=== PATIENT | female | born 1970 | race Caucasian/White ===

== ENCOUNTER 2019-07-01 19:39 | Emergency (ER) | payer BC, MEDICARE, SELFPAY ==
[2019-07-01 19:59] VITALS: BP 103/68; PULSE 100; RESP 16; TEMP 37.3; O2SAT 99
[2019-07-01 20:11] LABS: Influenza Control Valid (Valid)
--- NOTE | 2019-07-01 20:21 | ED.URI ---
HPI - URI/Sore Throat General Chief Complaint: Upper Respiratory Infection Stated Complaint: fever, cough, tightness in chest Source: patient Mode of arrival: ambulatory Limitations: no limitations History of Present Illness HPI Narrative: 49 y.o. with hx of asthma tx. with prn albuterol developed flu symptoms this AM consisting of a fever as high as 101 degrees, anterior chest tightness made worse with deep inspiration, rhinorrhea, a mild sore throat, fatigue and diffuse myalgia. She feels like the source of her cough is in her lower trachea where it feels irritated. She has upper abd. pain when she coughs. There's been no vomiting or diarrhea. She was recently exposed to her nephew who was dx. with Flu A yesterday. Her father has flu like symptoms. Able to tolerate fluids by mouth: Yes Related Data Home Medications Medication Instructions Recorded Confirmed lorazepam [Ativan] 1 mg PO TID PRN 03/10/19 07/01/19 metoprolol tartrate 12.5 mg PO DAILY 03/10/19 07/01/19 multivit with min-folic acid 0.8 mg PO DAILY 03/10/19 07/01/19 [Adult One Daily Multivitamin] olanzapine [Zyprexa] 1.25 mg PO HS 03/10/19 07/01/19 flecainide 50 mg PO Q12H 07/01/19 07/01/19 Allergies Allergy/AdvReac Type Severity Reaction Status Date / Time Penicillins Allergy Intermediate Verified 03/03/15 10:58 oseltamivir Allergy Unknown Rash Verified 05/26/18 21:03 citalopram AdvReac Severe SUICIDAL Verified 10/15/18 07:59 Contrast Media Allergy Unknown Dyspnea / Uncoded 10/03/18 16:04 SOB Review of Systems Constitutional: Constitutional: Reports no additional constitutional complaints ENT: Reports system reviewed and no additional complaints, except as documented Comments: lightheadedness Cardiovascular: Cardiovascular: Reports no additional cardiovascular complaints Respiratory: Comments: cough is unproductive Gastrointestinal: Gastrointestinal: Reports no additional gastrointestinal complaints Genitourinary: Genitourinary: Denies dysuria Musculoskeletal: Musculoskeletal: Reports no additional musculoskeletal complaints Integumentary/Breasts: Skin/Breast: Denies rash PMFSH Past Medical History Medical History Asthma Cardiac arrhythmia Exogenous obesity Surgical History Surgical History History of cardiac radiofrequency ablation History of Tushar-en-Y gastric bypass Family History Family History Father No problems noted. Mother COPD (chronic obstructive pulmonary disease) Social History Social History Smoking status: Current every day smoker Tobacco type: cigarettes Additional smoking assessment comments: smokes 15 cigarettes per day Substance use: never Exam Narrative: Exam Narrative: Frequent coughing. Looks like she doesn't feel well. Const: General: no acute distress HENMT: Face and sinus: no sinus tenderness Mouth: Yes moist mucous membranes Throat: posterior oropharynx normal Eyes: EOM: EOMs intact bilaterally Neck: Neck: no lymphadenopathy Chest: Chest palpation & inspection: normal inspection of the chest Resp: Auscultation: wheezes (with coughing) Cardio: Rate: regular rate Rhythm: regular rhythm GI: GI Palp: Yes Tenderness to palpation present (GI) (minor epigastric tenderness with no guarding. ) : General: Yes no CVA tenderness Extrem: General: normal to inspection Course Course Emergency Course: In view of exposure to Flu A, high prevalence in the community and typical symptoms, suspect flu test is a false negative. Duoneb resulted in chest opening and less coughing. Vital Signs Vital signs: Vital Signs Temperature 37.3 C 07/01/19 19:59 Pulse Rate 100 07/01/19 19:59 Respiratory Rate 16 07/01/19 19:59 Blood Pressure 103/68 07/01/19 1
[2019-07-01] MEDS: IPRATROPIUM 0.5 MG/ALBUTEROL SULFATE 2.5 MG AMPUL.NEB 3 ML INHALATION (20:33)
[2019-07-01] MEDS: predniSONE 20 MG TABLET 40 MG PO (20:34)
[2019-07-01 20:42] VITALS: PULSE 100; RESP 16
[2019-07-01 21:13] VITALS: PULSE 97; O2SAT 98
== END 2019-07-01 21:15 | disposition home or self-care (01) ==
PROVIDERS: Emergency Provider Family Medicine
DX: R68.89 Other general symptoms and signs (principal); J40 Bronchitis, not specified as acute or chronic
CPT/HCPCS: 87804; 94640; 99283; J7512

== ENCOUNTER 2019-07-06 19:44 | Emergency (ER) | payer BC, MEDICARE, SELFPAY ==
[2019-07-06 20:09] VITALS: BP 131/81; PULSE 99; RESP 16; TEMP 36.3; O2SAT 100
--- NOTE | 2019-07-06 20:27 | ECG_ITS ---
Measurements Intervals [place] Rate: 61 P: 33 AR: 149 QRS: 38 QRSD: 116 T: 38 QT: 426 QTc: 432 Interpretive Statements SINUS RHYTHM LOW QRS VOLTAGE IN LIMB LEADS INCOMPLETE RIGHT BUNDLE BRANCH BLOCK BASELINE ARTIFACT- I, III, AVL BORDERLINE ECG Electronically Signed On 07-07-2019 7:15:33 CDT by Roby Nina D.O.
[2019-07-06 20:41] VITALS: BP 105/53; BP 107/66; PULSE 76; PULSE 90
[2019-07-06] MEDS: PANTOPRAZOLE 40 MG TABLET PO (20:41)
[2019-07-06] MEDS: MECLIZINE HCL 25 MG TABLET PO (20:41)
[2019-07-06 20:42] LABS: Hematocrit 39.9 % (35.0-49.0); Mean Corpuscular HGB Conc 35.1 g/dL (32.0-36.0); Mean Corpuscular Hemoglobin 32.9 pg (27.0-31.0); Mean Corpuscular Volume 93.7 fL (78.0-102.0); Mean Platelet Volume 11.6 fl (9.2-11.8); Platelet Count Result 84 K/mm3 (150-420); Red Blood Count 4.26 M/mm3 (4.20-5.40); Red Cell Distribution Width 12.2 % (11.6-14.4); White Blood Count 4.3 K/mm3 (4.8-10.8)
[2019-07-06 20:57] LABS: Alanine Aminotransferase 26 U/L (14-59); Alkaline Phosphatase 68 U/L (46-116); Anion Gap 11.8 mmol/L (7-16); Aspartate Amino Transferase 20 U/L (15-37); Bilirubin,Total 0.2 mg/dL (0.00-1.00); Blood Urea Nitrogen 15 mg/dL (7-18); Calcium 8.2 mg/dL (8.5-10.1); Carbon Dioxide 29 mmol/L (21-32); Chloride 107 mmol/L (98-108); Estimated Glomerular Filt Rate > 60; Glucose 81 mg/dL (70-99); Osmolality Calculated 297 mOsm/kg (285-295); Potassium 3.8 mmol/L (3.5-5.1); Sodium 144 mmol/L (136-145); Total Protein 6.6 g/dL (6.4-8.2)
--- NOTE | 2019-07-06 21:06 | ED.GENADULT ---
HPI - General Adult General Chief complaint: Abdominal Pain Stated complaint: dizziness, sweating, upper abdominal pain Source: patient Mode of arrival: ambulatory Limitations: no limitations History of Present Illness HPI narrative: A 49-year-old female that presents with some dizziness has some frontal sinus pressure and tenderness with bilateral ear pressure, also has history of gastric bypass surgery and does have an epigastric discomfort is currently taking proton pump inhibitor but not daily, there is no nausea or vomiting no fever chills no shortness of breath no palpitations or arrhythmias no diarrhea constipation. Onset (ago): day(s) Location: head Radiation: abdomen Pain Consistency: intermittent Relieving factors: eating Associated symptoms: denies other symptoms Related Data Home Medications Medication Instructions Recorded Confirmed lorazepam [Ativan] 1 mg PO TID PRN 03/10/19 07/06/19 metoprolol tartrate 12.5 mg PO DAILY 03/10/19 07/06/19 multivit with min-folic acid 0.8 mg PO DAILY 03/10/19 07/06/19 [Adult One Daily Multivitamin] olanzapine [Zyprexa] 1.25 mg PO HS 03/10/19 07/06/19 flecainide 50 mg PO Q12H 07/01/19 07/06/19 Allergies Allergy/AdvReac Type Severity Reaction Status Date / Time Penicillins Allergy Intermediate Verified 03/03/15 10:58 oseltamivir Allergy Unknown Rash Verified 05/26/18 21:03 citalopram AdvReac Severe SUICIDAL Verified 10/15/18 07:59 Contrast Media Allergy Unknown Dyspnea / Uncoded 10/03/18 16:04 SOB Review of Systems Review of Systems: All systems reviewed & are unremarkable except as noted in HPI and below PMFSH Past Medical History Medical History Asthma Cardiac arrhythmia Exogenous obesity Surgical History Surgical History History of cardiac radiofrequency ablation History of Tushar-en-Y gastric bypass Family History Family History Father No problems noted. Mother COPD (chronic obstructive pulmonary disease) Social History Social History Smoking status: Current every day smoker Tobacco type: cigarettes Additional smoking assessment comments: smokes 15 cigarettes per day Substance use: never Exam Const: General: no acute distress Orientation/consciousness: patient oriented x3 HENMT: Head: normal to inspection Eyes: Conjunctivae: conjunctivae normal Pupils: Equal, round and reactive pupils present Neck: Neck: normal visual inspection and no lymphadenopathy Chest: Chest palpation & inspection: normal inspection of the chest Resp: Effort & Inspection: normal respiratory effort Auscultation: clear to auscultation bilaterally GI: GI Palp: Yes Soft to palpation and Yes Tenderness to palpation present (GI) ( Epigastric tenderness with palpation) : General: Yes no CVA tenderness Back/Spine/Pelvis: Back: no CVA tenderness Neuro: General: patient oriented x3 and moves all extremities Extrem: General: normal to inspection Course Vital Signs Vital signs: Vital Signs Temperature 36.3 C L 07/06/19 20:09 Pulse Rate 99 07/06/19 20:09 Respiratory Rate 16 07/06/19 20:09 Blood Pressure 131/81 07/06/19 20:09 Pulse Oximetry 100 07/06/19 20:09 Temperature 36.3 C L 07/06/19 20:09 Pulse Rate 90 07/06/19 20:41 Respiratory Rate 16 07/06/19 20:09 Blood Pressure 107/66 07/06/19 20:41 Pulse Oximetry 100 07/06/19 20:09 Medical Decision Making Vital Signs Vital Signs: Vital Signs Temperature 36.3 C L 07/06/19 20:09 Pulse Rate 99 07/06/19 20:09 Respiratory Rate 16 07/06/19 20:09 Blood Pressure 131/81 07/06/19 20:09 Pulse Oximetry 100 07/06/19 20:09 Temperature 36.3 C L 07/06/19 20:09 Pulse Rate 90 07/06/19 20:41 Respiratory Rate 16 07/06/19 20:09
[2019-07-06 21:28] VITALS: BP 104/57; PULSE 65; O2SAT 95
== END 2019-07-06 21:29 | disposition home or self-care (01) ==
PROVIDERS: Emergency Provider Emergency Medicine
DX: J01.10 Acute frontal sinusitis, unspecified (principal); K21.9 Gastro-esophageal reflux disease without esophagitis
CPT/HCPCS: 36415; 80053; 85027; 93005; 99283; A9270

== ENCOUNTER 2019-07-10 11:23 | Emergency (ER) | payer BC, MEDICARE, SELFPAY ==
--- NOTE | 2019-07-10 11:28 | ECG_ITS ---
Measurements Intervals [place] Rate: 63 P: 67 [place]: 163 QRS: 83 QRSD: 117 T: 72 QT: 431 QTc: 442 Interpretive Statements SINUS RHYTHM INTRAVENTRICULAR CONDUCTION DELAY CANNOT RULE OUT SEPTAL INFARCT, AGE INDETERMINATE ABNORMAL ECG Electronically Signed On 07-10-2019 11:49:02 CDT by Roby Nina D.O.
[2019-07-10 11:43] VITALS: BP 108/73; PULSE 68; RESP 22; TEMP 36.5; O2SAT 97
[2019-07-10 11:51] LABS: Glucose Point of Care 114 (65-105)
[2019-07-10] MEDS: LORAZEPAM 1 MG TABLET PO (12:10)
[2019-07-10 12:14] LABS: Basophils Absolute Auto 0.04 K/mm3 (0.00-0.10); Basophils Percent Auto 0.6 % (0.0-1.0); Eosinophils Percent Auto 1.5 % (1.0-6.0); Hematocrit 43.3 % (35.0-49.0); Hemoglobin 15.1 g/dL (12.0-15.0); Immature Granulocyte Absolute 0.02 K/mm3 (0.00-0.00); Immature Granulocyte Percent A 0.3 % (0.0-0.0); Lymphocytes Absolute Auto 1.77 K/mm3 (1.10-4.50); Lymphocytes Percent Auto 26.3 % (18.0-42.0); Mean Corpuscular HGB Conc 34.9 g/dL (32.0-36.0); Mean Corpuscular Hemoglobin 32.7 pg (27.0-31.0); Mean Corpuscular Volume 93.7 fL (78.0-102.0); Mean Platelet Volume 11.2 fl (9.2-11.8); Monocytes Percent Auto 4.5 % (2.0-11.0); Neutrophils Absolute Auto 4.5 K/mm3 (1.7-7.2); Neutrophils Percent Auto 66.8 % (50.0-70.0); Platelet Count Result 136 K/mm3 (150-420); Red Blood Count 4.62 M/mm3 (4.20-5.40); Red Cell Distribution Width 12.3 % (11.6-14.4); White Blood Count 6.7 K/mm3 (4.8-10.8)
[2019-07-10 12:19] LABS: Influenza Control Valid (Valid)
[2019-07-10 12:26] LABS: Alanine Aminotransferase 24 U/L (14-59); Albumin Level 3.3 g/dL (3.4-5.0); Alkaline Phosphatase 70 U/L (46-116); Anion Gap 8.7 mmol/L (7-16); Aspartate Amino Transferase 18 U/L (15-37); Bilirubin,Total 0.3 mg/dL (0.00-1.00); Blood Urea Nitrogen 6 mg/dL (7-18); Calcium 8.8 mg/dL (8.5-10.1); Carbon Dioxide 30 mmol/L (21-32); Chloride 109 mmol/L (98-108); Estimated Glomerular Filt Rate > 60; Glucose 78 mg/dL (70-99); Osmolality Calculated 294 mOsm/kg (285-295); Potassium 3.7 mmol/L (3.5-5.1); Sodium 144 mmol/L (136-145); Total Protein 6.6 g/dL (6.4-8.2)
--- NOTE | 2019-07-10 12:33 | ED.GENADULT ---
HPI - General Adult General Chief complaint: Arrhythmia/Palpitations Stated complaint: Heart racing,sweats Source: patient Mode of arrival: ambulatory Limitations: no limitations History of Present Illness HPI narrative: Is a 49-year-old patient presents with some the sensation of palpitations with clammy and sweaty lb with no chest pain no fever chills no abdominal pain no shortness of breath no nausea vomiting no dysuria. Patient was recently had her Zyprexa adjusted and since then has been having increased anxiety with a sensation of palpitations and sweaty palms. Patient was also started on clindamycin for sinusitis since she is allergic to numerous antibiotics. The patient currently has no dizziness no sinus congestion or pressure. Onset (ago): hour(s) Radiation: non-radiation Related Data Home Medications Medication Instructions Recorded Confirmed lorazepam [Ativan] 1 mg PO TID PRN 03/10/19 07/10/19 metoprolol tartrate 12.5 mg PO DAILY 03/10/19 07/10/19 multivit with min-folic acid 0.8 mg PO DAILY 03/10/19 07/10/19 [Adult One Daily Multivitamin] olanzapine [Zyprexa] 1.25 mg PO HS 03/10/19 07/10/19 flecainide 50 mg PO Q12H 07/01/19 07/10/19 Allergies Allergy/AdvReac Type Severity Reaction Status Date / Time Penicillins Allergy Intermediate Verified 03/03/15 10:58 oseltamivir Allergy Unknown Rash Verified 05/26/18 21:03 citalopram AdvReac Severe SUICIDAL Verified 10/15/18 07:59 Contrast Media Allergy Unknown Dyspnea / Uncoded 10/03/18 16:04 SOB Review of Systems Review of Systems: All systems reviewed & are unremarkable except as noted in HPI and below [facility] Social History Social History Smoking status: Current every day smoker Tobacco type: cigarettes Additional smoking assessment comments: smokes 15 cigarettes per day Substance use: never Exam Const: General: no acute distress and alert Orientation/consciousness: patient oriented x3 HENMT: Head: normal to inspection Eyes: Conjunctivae: conjunctivae normal Pupils: Equal, round and reactive pupils present Neck: Neck: normal visual inspection Chest: Chest palpation & inspection: normal inspection of the chest Resp: Effort & Inspection: normal respiratory effort Auscultation: clear to auscultation bilaterally Cardio: Rate: regular rate Rhythm: regular rhythm GI: GI Palp: Yes Soft to palpation : General: Yes no CVA tenderness Urinary Catheter: Urinary Catheter: patent and draining Back/Spine/Pelvis: Back: no CVA tenderness Skin: General skin exam: normal color Rashes: no rashes Neuro: General: patient oriented x3, moves all extremities, no meningeal signs and no focal motor deficits Extrem: General: normal to inspection Psych: Affect: Anxious affect present Course Vital Signs Vital signs: Vital Signs Temperature 36.5 C 07/10/19 11:43 Pulse Rate 68 07/10/19 11:43 Respiratory Rate 22 H 07/10/19 11:43 Blood Pressure 108/73 07/10/19 11:43 Pulse Oximetry 97 07/10/19 11:43 Temperature 36.5 C 07/10/19 11:43 Pulse Rate 68 07/10/19 11:43 Respiratory Rate 22 H 07/10/19 11:43 Blood Pressure 108/73 07/10/19 11:43 Pulse Oximetry 97 07/10/19 11:43 Medical Decision Making Vital Signs Vital Signs: Vital Signs Temperature 36.5 C 07/10/19 11:43 Pulse Rate 68 07/10/19 11:43 Respiratory Rate 22 H 07/10/19 11:43 Blood Pressure 108/73 07/10/19 11:43 Pulse Oximetry 97 07/10/19 11:43 Temperature 36.5 C 07/10/19 11:43 Pulse Rate 68 07/10/19 11:43 Respiratory Rate 22 H 07/10/19 11:43 Blood Pressure 108/73 07/10/19 11:43 Pulse Oximetry 97 07/10/19 11:43 Lab Data Result diagrams: 07/10/19 11:58 07/10/19 11:58 Labs: Lab Results 07/10/19 07/10/19 07/10/19 Range/Units 11:49 11:58 11:58 WBC 6.7 (4.8-10.8) K/mm3 RBC 4.62 (4.20-5.40) M/mm3 Hgb 15.1 H
[2019-07-10 12:45] VITALS: BP 106/61; PULSE 70; O2SAT 96
== END 2019-07-10 12:46 | disposition home or self-care (01) ==
PROVIDERS: Emergency Provider Emergency Medicine
DX: F41.9 Anxiety disorder, unspecified (principal)
CPT/HCPCS: 36415; 80053; 85025; 87804; 93005; 99283; A9270

== ENCOUNTER 2019-07-19 21:03 | Emergency (ER) | payer BC, MEDICARE, SELFPAY ==
[2019-07-19 21:11] VITALS: BP 128/67; PULSE 72; RESP 20; TEMP 36.3; O2SAT 98
--- NOTE | 2019-07-19 21:37 | ECG_ITS ---
Measurements Intervals [place] Rate: 72 P: 38 [place]: 144 QRS: 52 QRSD: 107 T: 43 QT: 404 QTc: 444 Interpretive Statements SINUS RHYTHM INCOMPLETE RIGHT BUNDLE BRANCH BLOCK LOW QRS VOLTAGE IN LIMB LEADS BORDERLINE ECG Electronically Signed On 07-20-2019 8:07:03 CDT by Roby Nina D.O.
--- NOTE | 2019-07-19 21:39 | ED.ABDPAIN ---
HPI - Abdominal Pain General Chief Complaint: Abdominal Pain Stated Complaint: abdominal pain History of Present Illness HPI narrative: Avani is a 49F with a complex PMH most significant for gastric bypass, cholecystitis s/p cholecystectomy but with gallstones after the surgery that presented to the ED with RUQ pain. She woke up with the dull RUQ pain that radiates to the back. It has become progressively worse throughout the day. It is associated with anorexia but no nausea, vomiting, diarrhea, constipation, chest pain, dysuria, urinary frequency, lightheadedness, or syncope/near-syncope. She had a BM today. Related Data Home Medications Medication Instructions Recorded Confirmed lorazepam [Ativan] 1 mg PO TID PRN 03/10/19 07/19/19 metoprolol tartrate 12.5 mg PO DAILY 03/10/19 07/19/19 multivit with min-folic acid 0.8 mg PO DAILY 03/10/19 07/19/19 [Adult One Daily Multivitamin] olanzapine [Zyprexa] 1.25 mg PO HS 03/10/19 07/19/19 flecainide 50 mg PO Q12H 07/01/19 07/19/19 Allergies Allergy/AdvReac Type Severity Reaction Status Date / Time Penicillins Allergy Intermediate Verified 03/03/15 10:58 oseltamivir Allergy Unknown Rash Verified 05/26/18 21:03 citalopram AdvReac Severe SUICIDAL Verified 10/15/18 07:59 Contrast Media Allergy Unknown Dyspnea / Uncoded 10/03/18 16:04 SOB Review of Systems Constitutional: Constitutional: Reports as per HPI Eyes: Eyes: Reports as per HPI ENT: Reports system reviewed and no additional complaints, except as documented Cardiovascular: Cardiovascular: Reports as per HPI Respiratory: Respiratory: Reports as per HPI Gastrointestinal: Gastrointestinal: Reports as per HPI Genitourinary: Genitourinary: Reports no additional female genitourinary complaints Musculoskeletal: Musculoskeletal: Reports no additional musculoskeletal complaints Integumentary/Breasts: Skin/Breast: Reports system reviewed and no additional complaints, except as docu Neurologic: Reports system reviewed and no additional complaints, except as documented Psychiatric: Psychiatric: Reports no additional psychiatric complaints Endocrine: Endocrine: Reports no additional endocrine complaints Hematologic/Lymphatic: Hematologic/Lymphatic: Reports no additional hematologic/lymphatic complaints Allergic/Immunologic: Allergic/Immunologic: Reports no additional allergic/immunologic complaints PMFSH Past Medical History Medical History Asthma Cardiac arrhythmia Exogenous obesity Surgical History Surgical History History of cardiac radiofrequency ablation History of Tushar-en-Y gastric bypass Family History Family History Father No problems noted. Mother COPD (chronic obstructive pulmonary disease) Social History Social History Smoking status: Current every day smoker Tobacco type: cigarettes Additional smoking assessment comments: smokes 15 cigarettes per day Substance use: never Gender identity (if verbalized by the patient): Female Exam Const: General: no acute distress HENMT: Other: normocephalic, atraumatic Eyes: Conjunctivae: conjunctivae normal Pupils: Equal, round and reactive pupils present Neck: Neck: normal visual inspection Chest: Chest palpation & inspection: normal inspection of the chest Resp: Effort & Inspection: normal respiratory effort Auscultation: clear to auscultation bilaterally Other: no coughing Cardio: Rate: regular rate Rhythm: regular rhythm Heart sounds: no murmurs GI: GI Palp: Yes Soft to palpation, No Tenderness to palpation present (GI) and No Guarding due to palpation present (GI) : General: Yes no CVA tenderness and Yes other (No suprapubic tenderness) Back/Spine/Pelvis: Back: no CVA tenderness Skin: Gen
[2019-07-19 21:49] LABS: Basophils Absolute Auto 0.04 K/mm3 (0.00-0.10); Basophils Percent Auto 0.7 % (0.0-1.0); Eosinophils Absolute Auto 0.14 K/mm3 (0.02-0.50); Eosinophils Percent Auto 2.4 % (1.0-6.0); Hematocrit 38.8 % (35.0-49.0); Hemoglobin 13.7 g/dL (12.0-15.0); Immature Granulocyte Absolute 0.01 K/mm3 (0.00-0.00); Immature Granulocyte Percent A 0.2 % (0.0-0.0); Lymphocytes Absolute Auto 2.87 K/mm3 (1.10-4.50); Lymphocytes Percent Auto 48.8 % (18.0-42.0); Mean Corpuscular HGB Conc 35.3 g/dL (32.0-36.0); Mean Corpuscular Hemoglobin 33.1 pg (27.0-31.0); Mean Corpuscular Volume 93.7 fL (78.0-102.0); Mean Platelet Volume 12.2 fl (9.2-11.8); Monocytes Absolute Auto 0.29 K/mm3 (0.10-0.90); Monocytes Percent Auto 4.9 % (2.0-11.0); Neutrophils Absolute Auto 2.5 K/mm3 (1.7-7.2); Platelet Count Result 111 K/mm3 (150-420); Red Blood Count 4.14 M/mm3 (4.20-5.40); Red Cell Distribution Width 12.5 % (11.6-14.4); White Blood Count 5.9 K/mm3 (4.8-10.8)
[2019-07-19 22:02] LABS: INR 1.1; Prothrombin Time 11.4 Seconds (9.64-11.0)
[2019-07-19 22:06] LABS: BNP 29.2 pg/mL (0-100)
[2019-07-19 22:07] LABS: Alanine Aminotransferase 27 U/L (14-59); Albumin Level 3.1 g/dL (3.4-5.0); Alkaline Phosphatase 73 U/L (46-116); Anion Gap 10.8 mmol/L (7-16); Aspartate Amino Transferase 19 U/L (15-37); Bilirubin,Total 0.4 mg/dL (0.00-1.00); Blood Urea Nitrogen 10 mg/dL (7-18); Calcium 8.3 mg/dL (8.5-10.1); Carbon Dioxide 28 mmol/L (21-32); Chloride 108 mmol/L (98-108); Estimated CRCL calculation 83 ml/min; Estimated Glomerular Filt Rate > 60; Glucose 97 mg/dL (70-99); Lipase 76 U/L (73-393); Osmolality Calculated 295 mOsm/kg (285-295); Potassium 3.8 mmol/L (3.5-5.1); Sodium 143 mmol/L (136-145); Total Protein 5.9 g/dL (6.4-8.2); Troponin I < 0.02 ng/mL (0.00-0.056)
[2019-07-19 22:21] VITALS: BP 109/58; PULSE 67; RESP 20; O2SAT 95
== END 2019-07-19 22:33 | disposition home or self-care (01) ==
PROVIDERS: Emergency Provider Family Medicine
DX: R07.81 Pleurodynia (principal); K29.70 Gastritis, unspecified, without bleeding; F17.200 Nicotine dependence, unspecified, uncomplicated
CPT/HCPCS: 36415; 80053; 83690; 83880; 84484; 85025; 85610; 93005; 99283; 99284

== ENCOUNTER 2019-09-24 09:47 | Outpatient (CLI) | payer BC, MEDICARE, SELFPAY ==
--- NOTE | 2019-09-24 10:10 | ECG_ITS ---
Measurements Intervals [place] Rate: 51 P: 48 [place]: 163 QRS: 63 QRSD: 105 T: 61 QT: 412 QTc: 382 Interpretive Statements SINUS BRADYCARDIA WITH SINUS ARRHYTHMIA INCOMPLETE RIGHT BUNDLE BRANCH BLOCK LOW QRS VOLTAGE IN PRECORDIAL LEADS CANNOT RULE OUT SEPTAL INFARCT, AGE INDETERMINATE ABNORMAL ECG Electronically Signed On 09-24-2019 10:17:15 CDT by Roby Nina D.O.
[2019-09-24 11:30] LABS: Alanine Aminotransferase 59 U/L (14-59); Albumin Level 3.4 g/dL (3.4-5.0); Alkaline Phosphatase 89 U/L (46-116); Aspartate Amino Transferase 41 U/L (15-37); Bilirubin,Total 0.4 mg/dL (0.00-1.00); Blood Urea Nitrogen 11 mg/dL (7-18); Calcium 8.8 mg/dL (8.5-10.1); Carbon Dioxide 30 mmol/L (21-32); Chloride 106 mmol/L (98-108); Estimated Glomerular Filt Rate > 60; Ferritin 60 ng/mL (8-252); Folic Acid 18.1 ng/mL (8.6->20); Glucose 65 mg/dL (70-99); Iron 96 ug/dL (50-170); Osmolality Calculated 295 mOsm/kg (285-295); Percent Iron Saturation 35 % (12-57); Sodium 144 mmol/L (136-145); Total Protein 6.5 g/dL (6.4-8.2); Vitamin B12 855 pg/mL (193-986)
[2019-09-27 06:03] LABS: Zinc 86 mcg/dL (60-130)
[2019-09-27 10:27] LABS: Vitamin D 25 Hydroxy 35 ng/mL (30-100)
== END 2019-09-24 09:48 | disposition home or self-care (01) ==
DX: Z79.899 Other long term (current) drug therapy (principal); K90.9 Intestinal malabsorption, unspecified
CPT/HCPCS: 36415; 80053; 82306; 82525; 82607; 82728; 82746; 83540; 83550; 84425; 84630; 93005

== ENCOUNTER 2019-10-21 13:07 | Emergency (ER) | payer BC, MEDICARE, SELFPAY ==
--- NOTE | ~2019-10-21 | XR_ITS ---
XR chest 2V DATE: 10/21/2019 13:40 INDICATION: Syncope, shortness of breath TECHNIQUE: 2 views COMPARISON: 05/06/2019 view chest FINDINGS: There is levoscoliosis of the upper thoracic spine and dextro scoliosis of the lower thorac ic spine. Normal heart size. No hilar or mediastinal enlargement. No pulmonary infiltrate or consolidation, pleural effusion or pulmonary vascular congestion or pneumo thorax. IMPRESSION: No active cardiopulmonary disease Scoliosis Reviewed, dictated and finalized at location A.
--- NOTE | ~2019-10-21 | CT_ITS ---
EXAMINATION: CT brain wo con DATE: 10/21/2019 13:40 INDICATION: Syncope. Memory loss. Dizziness. TECHNIQUE: Computed tomography (CT) of the head was performed without intravenous contrast. Sagittal and coronal reconstructions were performed. The mA was adjusted according to patient size. Iterative reconstruction technique was employed. The dose-length product was 605.33 mGy-cm. COMPARISON: head CT dated 02/22/2019 FINDINGS: No acute intracranial hemorrhage, acute infarction or abnormal extra axial fluid collection. Ventricl es are normal and symmetric. No mass/mass effect. The orbits, paranasal sinuses and mastoid air cells are normal. IMPRESSION: 1. Normal head CT. Reviewed, dictated and finalized at location A. IMPRESSION: 1. Normal head CT.
--- NOTE | 2019-10-21 13:14 | ECG_ITS ---
Measurements Intervals [place] Rate: 54 P: 67 [place]: 156 QRS: 79 QRSD: 112 T: 71 QT: 429 QTc: 407 Interpretive Statements SINUS BRADYCARDIA INTRAVENTRICULAR CONDUCTION DELAY BORDERLINE ECG Electronically Signed On 10-21-2019 15:03:52 CDT by Roby Nina D.O.
[2019-10-21 13:20] VITALS: BP 107/67; PULSE 54; RESP 18; TEMP 36.5; O2SAT 98
[2019-10-21 13:27] LABS: Add Urine Microscopic? YES; Appearance Urine Sl Cloudy (Clear); Bilirubin Urine Negative (Negative); Blood Urine Negative (Negative); Color Urine Yellow (Yellow); Glucose Urine UA Negative (Negative); Ketones Urine Trace (Negative); Leukocyte Esterase Ur Negative LEU/UL (Negative); Nitrate Urine Negative (Negative); Protein Urine Negative (Negative); Specific Grav Ur 1.025 (1.010-1.020); Urobilinogen Urine 0.2 mg/dL (0.2-1.0); pH Urine 5.5 (5.0-8.0)
--- NOTE | 2019-10-21 13:29 | ED.SYNCOPE ---
HPI - Syncope General Chief Complaint: Syncope Stated Complaint: ambulance Time Seen by Provider: 10/21/19 13:10 Source: patient Mode of arrival: EMS Limitations: no limitations History of Present Illness HPI narrative: 49-year-old woman brought to the emergency department by EMS after a syncopal episode today. She was sitting outdoors eating lunch at a restaurant when she states she felt weak, short of breath and paralyzed. She states that she checked her pulse and it felt weak . Witnesses deny any seizure-like activity. On arrival, EMS found her to be somewhat somnolent but responsive. She had a normal Vitals and blood sugar at the scene. She denies any recent illness, head injuries, chest pain, nausea, vomiting, fever, diarrhea, headaches or dizziness. MD complaint: loss of consciousness -: minutes(s) Prodromal symptoms: shortness of breath Witnessed: Yes - by Bystander Context: at rest Injuries sustained associated with event: none Current symptoms: back to baseline Treatments prior to arrival: IV fluids Related Data Home Medications Medication Instructions Recorded Confirmed lorazepam [Ativan] 1 mg PO TID PRN 03/10/19 10/21/19 metoprolol tartrate 12.5 mg PO DAILY 03/10/19 10/21/19 multivit with min-folic acid 0.8 mg PO DAILY 03/10/19 10/21/19 [Adult One Daily Multivitamin] olanzapine [Zyprexa] 1.25 mg PO HS 03/10/19 10/21/19 flecainide 50 mg PO Q12H 07/01/19 10/21/19 Allergies Allergy/AdvReac Type Severity Reaction Status Date / Time Penicillins Allergy Intermediate Hives Verified 10/21/19 15:34 oseltamivir Allergy Unknown Rash Verified 05/26/18 21:03 iohexol Allergy Hives Verified 10/21/19 15:35 [From contrast - CT, X-RAY] citalopram AdvReac Severe SUICIDAL Verified 10/15/18 07:59 Review of Systems Constitutional: Constitutional: Denies chills, Denies fever(s) and Denies weakness Eyes: Eyes: Denies change in vision and Denies photophobia ENT: Denies dysphagia, Denies nasal congestion and Denies sore throat Cardiovascular: Cardiovascular: Denies chest pain and Denies radiating jaw, neck or arm pain Respiratory: Respiratory: Denies cough, Reports dyspnea and Denies wheezing Gastrointestinal: Gastrointestinal: Denies abdominal pain, Denies diarrhea, Reports nausea and Denies vomiting Genitourinary: Genitourinary: Denies hematuria, Denies nocturia and Denies dysuria Musculoskeletal: Musculoskeletal: Denies back pain, Denies arthralgias and Denies joint swelling Integumentary/Breasts: Skin/Breast: Denies pruritus, Denies erythema and Denies rash Neurologic: Denies vertigo, Denies dizziness and Denies syncope Endocrine: Endocrine: Denies polydipsia and Denies polyuria Hematologic/Lymphatic: Hematologic/Lymphatic: Denies easy bleeding and Denies easy bruising Allergic/Immunologic: Allergic/Immunologic: Denies lip swelling and Denies wheezing PMFSH Past Medical History Medical History Asthma Cardiac arrhythmia Exogenous obesity Surgical History Surgical History History of cardiac radiofrequency ablation History of Tushar-en-Y gastric bypass Social History Social History Smoking status: Current every day smoker Tobacco type: cigarettes Additional smoking assessment comments: smokes 15 cigarettes per day Substance use: never Gender identity (if verbalized by the patient): Female Exam Const: General: healthy appearing, no acute distress and alert Orientation/consciousness: patient oriented x3 Limitations: no limitations HENMT: Head: normal to inspection Ears: external ears normal, TM's normal bilaterally and EAC's normal General nose exam: Normal nares present Mouth: Yes moist mucous membranes Eyes: Conjunctivae: conjunctivae normal Pupils: Equal, round and reactive pupils present EOM: EOMs intact b
[2019-10-21 13:31] LABS: Basophils Absolute Auto 0.06 K/mm3 (0.00-0.10); Basophils Percent Auto 1.1 % (0.0-1.0); Eosinophils Absolute Auto 0.18 K/mm3 (0.02-0.50); Eosinophils Percent Auto 3.4 % (1.0-6.0); Hematocrit 39.7 % (35.0-49.0); Hemoglobin 13.7 g/dL (12.0-15.0); Immature Granulocyte Absolute 0.01 K/mm3 (0.00-0.00); Immature Granulocyte Percent A 0.2 % (0.0-0.0); Lymphocytes Absolute Auto 2.23 K/mm3 (1.10-4.50); Lymphocytes Percent Auto 41.7 % (18.0-42.0); Mean Corpuscular HGB Conc 34.5 g/dL (32.0-36.0); Mean Corpuscular Hemoglobin 33.3 pg (27.0-31.0); Mean Corpuscular Volume 96.6 fL (78.0-102.0); Mean Platelet Volume 12.1 fl (9.2-11.8); Monocytes Absolute Auto 0.33 K/mm3 (0.10-0.90); Monocytes Percent Auto 6.2 % (2.0-11.0); Neutrophils Absolute Auto 2.5 K/mm3 (1.7-7.2); Neutrophils Percent Auto 47.4 % (50.0-70.0); Platelet Count Result 102 K/mm3 (150-420); Red Blood Count 4.11 M/mm3 (4.20-5.40); Red Cell Distribution Width 12.8 % (11.6-14.4); White Blood Count 5.4 K/mm3 (4.8-10.8)
[2019-10-21 13:32] LABS: Bacteria Urine 2+ /hpf; Mucus Urine Moderate /lpf; RBC Urine 0-2 /hpf (0-2); Squamous Epithelial Cell Urine Moderate /hpf (Few); WBC Urine 0-3 /hpf (0-3)
[2019-10-21 13:48] LABS: INR 1.1; Lactic Acid Reflex 0.9 mmol/L (0.4-2.0); Partial Thromboplastin Time 23.3 SEC (22.3-31.6)
[2019-10-21 13:49] LABS: Alanine Aminotransferase 48 U/L (14-59); Albumin Level 2.9 g/dL (3.4-5.0); Alkaline Phosphatase 75 U/L (46-116); Aspartate Amino Transferase 43 U/L (15-37); Bilirubin,Total 0.3 mg/dL (0.00-1.00); Blood Urea Nitrogen 11 mg/dL (7-18); Calcium 8.1 mg/dL (8.5-10.1); Carbon Dioxide 26 mmol/L (21-32); Chloride 107 mmol/L (98-108); Estimated Glomerular Filt Rate > 60; Glucose 110 mg/dL (70-99); Magnesium 1.7 mg/dL (1.8-2.4); Osmolality Calculated 292 mOsm/kg (285-295); Sodium 141 mmol/L (136-145); Total Protein 5.9 g/dL (6.4-8.2)
[2019-10-21 13:50] VITALS: BP 102/55; PULSE 51
[2019-10-21 13:51] VITALS: BP 117/65; PULSE 84
[2019-10-21 13:51] LABS: Troponin I < 0.02 ng/mL (0.00-0.056)
--- NOTE | 2019-10-21 14:26 | PC.NURSE ---
PT NEURO REMAINS INTACT, SITTING UP TALKING ON THE PHONE TO FAMILY MEMBERS
--- NOTE | 2019-10-21 14:39 | PC.NURSE ---
ERP CALLS DR ADAIR FOR CONSULT - HADDAD
[2019-10-21] MEDS: ALBUTEROL SULFATE NEB 2.5 MG/3 ML INH INHALATION (15:34)
[2019-10-21 15:37] VITALS: PULSE 50; RESP 12
[2019-10-21 15:42] VITALS: PULSE 73; RESP 12
[2019-10-21 15:54] VITALS: BP 108/58; PULSE 68; O2SAT 97
== END 2019-10-21 16:05 | disposition home or self-care (01) ==
PROVIDERS: Emergency Provider Emergency Medicine
DX: R00.1 Bradycardia, unspecified (principal); R55 Syncope and collapse
CPT/HCPCS: 36415; 70450; 71046; 80053; 81001; 83605; 83735; 84484; 85025; 85380; 85610; 85730; 93005; 94640; 99284

== ENCOUNTER 2019-12-28 10:25 | Emergency (ER) | payer MEDICARE, SELFPAY ==
[2019-12-28 11:00] VITALS: BP 112/83; PULSE 104; RESP 20; TEMP 36.8; O2SAT 97
--- NOTE | 2019-12-28 11:08 | ED.DENTAL ---
HPI - Dental/Oral General Chief complaint: Dental/Oral Stated complaint: tooth pain Source: patient History of Present Illness HPI Narrative: sh 49-year-old female presents with some dental pain, chronic dental issues chronic tooth decay with currently surrounding gum inflammation does have a appointment with a dentist approximately 1 week but according to patient can't wait 1 week because of pain and inflammation with radiation into her left lower jaw area with no fever chills no shortness of breath no nausea vomiting abdominal pain. MD Complaint: tooth pain Teeth map: 1. Dental pain with surrounding gum inflammation Onset (ago): month(s) Duration: constant Severity: moderate Severity scale (1-10): 6 Relieving factors: NSAIDs Exacerbating factors: chewing Context: history of dental caries and poor dental care Associated symptoms: gum swelling Related Data Home Medications Medication Instructions Recorded Confirmed lorazepam [Ativan] 1 mg PO TID PRN 03/10/19 12/28/19 multivit with min-folic acid 0.8 mg PO DAILY 03/10/19 12/28/19 [Adult One Daily Multivitamin] olanzapine [Zyprexa] 1.25 mg PO HS 03/10/19 12/28/19 flecainide 50 mg PO Q12H 07/01/19 12/28/19 Allergies Allergy/AdvReac Type Severity Reaction Status Date / Time Penicillins Allergy Intermediate Hives Verified 10/21/19 15:34 oseltamivir Allergy Unknown Rash Verified 05/26/18 21:03 iohexol Allergy Hives Verified 10/21/19 15:35 [From contrast - CT, X-RAY] citalopram AdvReac Severe SUICIDAL Verified 10/15/18 07:59 Review of Systems Review of Systems: All systems reviewed & are unremarkable except as noted in HPI and below PMFSH Past Medical History Medical History Asthma Cardiac arrhythmia Exogenous obesity Surgical History Surgical History History of cardiac radiofrequency ablation History of Tushar-en-Y gastric bypass Family History Family History Father No problems noted. Mother COPD (chronic obstructive pulmonary disease) Social History Social History Smoking status: Current every day smoker Tobacco type: cigarettes Additional smoking assessment comments: smokes 15 cigarettes per day Substance use: never Gender identity (if verbalized by the patient): Female Exam Const: General: no acute distress Orientation/consciousness: patient oriented x3 HENMT: Head: normal to inspection Eyes: Conjunctivae: conjunctivae normal Pupils: Equal, round and reactive pupils present Neck: Neck: normal visual inspection, no lymphadenopathy and no meningeal signs Chest: Chest palpation & inspection: normal inspection of the chest Resp: Effort & Inspection: normal respiratory effort Cardio: Rate: regular rate Rhythm: regular rhythm : General: Yes no CVA tenderness Back/Spine/Pelvis: Back: no CVA tenderness Neuro: General: patient oriented x3, moves all extremities and no meningeal signs Extrem: General: normal to inspection and no pedal edema Psych: Mental Status: mental status grossly normal Course Course Emergency Course: Patient received IM Toradol and send in antibiotics to her pharmacy and advised her to keep her follow-up with her dentist as scheduled. Critical Care Time Critical Care Time Critical Care Time: No Discharge Plan Discharge Clinical Impression: Toothache, Dental caries, Dental abscess Patient Disposition: Home, Self-Care Condition: Stable Instructions: Antibiotic Form, Dental Abscess (ED), Toothache (ED) Additional Instructions: Take medicine as prescribed and follow-up with dentist as soon as possible for further evaluation and treatment. Prescriptions: New sulfamethoxazole-trimethoprim [Bactrim DS] 800-160 mg tablet 1 tablet PO Q12H Qty: 20
[2019-12-28] MEDS: KETOROLAC (*BKC) 60 MG/2 ML VIAL IM (11:20)
--- NOTE | 2019-12-28 12:12 | PC.NURSE ---
Pt called to say she has an allergy to bactrim. edp notified. Clindamycin 300mg po qid x 10 days called in to [facility] in [place].
== END 2019-12-28 11:40 | disposition home or self-care (01) ==
PROVIDERS: Emergency Provider Emergency Medicine
DX: K08.89 Other specified disorders of teeth and supporting structures (principal); K02.9 Dental caries, unspecified; K04.7 Periapical abscess without sinus
CPT/HCPCS: 96372; 99283; J1885

== ENCOUNTER 2020-03-12 17:50 | Emergency (ER) | payer BC, MEDICARE, SELFPAY ==
[2020-03-12 18:06] VITALS: BP 112/71; PULSE 89; RESP 16; TEMP 36.8; O2SAT 97
--- NOTE | 2020-03-12 18:06 | ED.HA ---
HPI - Headache General Chief Complaint: Headache Stated Complaint: headache Time Seen by Provider: 03/12/20 18:06 Source: patient Mode of arrival: ambulatory Limitations: no limitations History of Present Illness HPI Narrative: 50-year-old woman comes in today complaining of a right-sided headache that has been present for the last 5 days. Patient states that she has had some mild nausea, photophobia and intermittently, muscle spasms on her scalp. She denies nasal congestion, sore throat, fever, vomiting, diarrhea, sick exposures, visual changes, focal weakness, and syncope. She denies recent head injury. She has no history of seizures. MD elicited complaint: headache Onset (ago): day(s) (5) Onset description: gradually Location: right, frontal and temporal Severity: severe Quality & Timing: constant and pressure Exacerbating factors: none Relieving factors: nothing Context: occurred at rest Associated symptoms: nausea and photophobia Treatments prior to arrival: acetaminophen Related Data Home Medications Medication Instructions Recorded Confirmed lorazepam [Ativan] 1 mg PO BID PRN 03/10/19 03/12/20 olanzapine [Zyprexa] 5 mg PO HS 03/10/19 03/12/20 flecainide 50 mg PO Q12H 07/01/19 03/12/20 Allergies Allergy/AdvReac Type Severity Reaction Status Date / Time Penicillins Allergy Intermediate Hives Verified 10/21/19 15:34 oseltamivir Allergy Unknown Rash Verified 05/26/18 21:03 iohexol Allergy Hives Verified 10/21/19 15:35 [From contrast - CT, X-RAY] sertraline [From Zoloft] Allergy Unknown Verified 03/12/20 18:11 sulfamethoxazole Allergy Hives Verified 12/28/19 12:12 [From Bactrim] trimethoprim [From Bactrim] Allergy Hives Verified 12/28/19 12:12 citalopram AdvReac Severe SUICIDAL Verified 10/15/18 07:59 Review of Systems Constitutional: Constitutional: Denies chills and Denies fever(s) Eyes: Eyes: Denies change in vision and Reports photophobia ENT: Denies dysphagia, Denies nasal congestion and Denies sore throat Respiratory: Respiratory: Denies cough, Denies dyspnea and Denies wheezing Gastrointestinal: Gastrointestinal: Denies abdominal pain, Denies diarrhea, Reports nausea and Denies vomiting Musculoskeletal: Musculoskeletal: Denies back pain, Denies arthralgias and Denies joint swelling Integumentary/Breasts: Skin/Breast: Denies pruritus, Denies erythema and Denies rash Neurologic: Denies vertigo, Denies dizziness and Denies syncope Endocrine: Endocrine: Denies polydipsia and Denies polyuria Hematologic/Lymphatic: Hematologic/Lymphatic: Denies easy bleeding and Denies easy bruising Allergic/Immunologic: Allergic/Immunologic: Denies lip swelling and Denies throat swelling PMF Past Medical History Medical History (Updated 03/12/20 @ 18:24 by Joshua Swain MD) Asthma Cardiac arrhythmia Exogenous obesity Surgical History Surgical History History of cardiac radiofrequency ablation History of Tushar-en-Y gastric bypass Family History Family History Father No problems noted. Mother COPD (chronic obstructive pulmonary disease) Social History Social History Smoking status: Current every day smoker Tobacco type: cigarettes Additional smoking assessment comments: smokes 15 cigarettes per day Substance use: never Gender identity (if verbalized by the patient): Female Exam Const: General: healthy appearing and alert Orientation/consciousness: patient oriented x3 Limitations: no limitations Other: [id number] acute distress HENMT: Head: normal to inspection Ears: external ears normal, TM's normal bilaterally and EAC's normal General nose exam: Normal nares present Face and sinus: normal facial exam Mouth: Yes moist mucous membranes abnormal Throat: posterior oropharynx normal E
[2020-03-12] MEDS: PROMETHAZINE HCL 25 MG/ML AMPUL IM (18:22)
[2020-03-12] MEDS: HYDROcodone/acetaminophen (*CRX) 5-325 MG TABLET 1 TAB PO (18:22)
[2020-03-12 18:27] LABS: Basophils Absolute Auto 0.06 K/mm3 (0.00-0.10); Basophils Percent Auto 0.6 % (0.0-1.0); Eosinophils Percent Auto 1.9 % (1.0-6.0); Hematocrit 45.9 % (35.0-49.0); Hemoglobin 15.4 g/dL (12.0-15.0); Immature Granulocyte Absolute 0.02 K/mm3 (0.00-0.00); Immature Granulocyte Percent A 0.2 % (0.0-0.0); Lymphocytes Absolute Auto 2.65 K/mm3 (1.10-4.50); Lymphocytes Percent Auto 25.3 % (18.0-42.0); Mean Corpuscular HGB Conc 33.6 g/dL (32.0-36.0); Mean Corpuscular Hemoglobin 32.8 pg (27.0-31.0); Mean Corpuscular Volume 97.7 fL (78.0-102.0); Mean Platelet Volume 11.9 fl (9.2-11.8); Monocytes Absolute Auto 0.81 K/mm3 (0.10-0.90); Monocytes Percent Auto 7.7 % (2.0-11.0); Neutrophils Absolute Auto 6.7 K/mm3 (1.7-7.2); Neutrophils Percent Auto 64.3 % (50.0-70.0); Platelet Count Result 129 K/mm3 (150-420); Red Cell Distribution Width 12.8 % (11.6-14.4); White Blood Count 10.5 K/mm3 (4.8-10.8)
[2020-03-12 18:43] LABS: Alanine Aminotransferase 44 U/L (14-59); Albumin Level 3.4 g/dL (3.4-5.0); Alkaline Phosphatase 84 U/L (46-116); Anion Gap 8 mmol/L (8-16); Aspartate Amino Transferase 26 U/L (15-37); Bilirubin,Total 0.3 mg/dL (0.00-1.00); Blood Urea Nitrogen 19 mg/dL (7-18); Calcium 8.4 mg/dL (8.5-10.1); Carbon Dioxide 29 mmol/L (21-32); Chloride 103 mmol/L (98-108); Estimated CRCL calculation 66 ml/min; Estimated Glomerular Filt Rate > 60; Glucose 96 mg/dL (70-99); Osmolality Calculated 292 mOsm/kg (285-295); Potassium 4.7 mmol/L (3.5-5.1); Sodium 140 mmol/L (136-145); Total Protein 6.8 g/dL (6.4-8.2)
[2020-03-12 19:20] VITALS: RESP 16
== END 2020-03-12 19:20 | disposition home or self-care (01) ==
PROVIDERS: Emergency Provider Emergency Medicine
DX: R51.9 Headache, unspecified (principal)
CPT/HCPCS: 36415; 80053; 85025; 96372; 99283; A9270; J2550

== ENCOUNTER 2020-04-11 18:03 | Emergency (ER) | payer BC, MEDICARE, SELFPAY ==
[2020-04-11 18:27] VITALS: BP 105/63; PULSE 67; RESP 20; TEMP 35.9; O2SAT 100
--- NOTE | 2020-04-11 18:32 | ECG_ITS ---
Measurements Intervals [place] Rate: 63 P: 44 LA: 146 QRS: 32 QRSD: 105 T: 51 QT: 409 QTc: 420 Interpretive Statements SINUS RHYTHM LOW QRS VOLTAGE IN LIMB LEADS BORDERLINE ECG Electronically Signed On 04-12-2020 8:27:51 REDUCTION PLANT SUPERVISOR by Roby Nina D.O.
[2020-04-11 18:57] LABS: Add Urine Microscopic? NO; Appearance Urine Clear (Clear); Bilirubin Urine Negative (Negative); Blood Urine Negative (Negative); Color Urine Yellow (Yellow); Glucose Urine UA Negative (Negative); Ketones Urine Negative (Negative); Leukocyte Esterase Ur Negative (Negative); Nitrate Urine Negative (Negative); Protein Urine Negative (Negative); Specific Grav Ur 1.025 (1.010-1.020); Urobilinogen Urine 0.2 mg/dL (0.2-1.0)
[2020-04-11 19:00] VITALS: BP 113/68; PULSE 68; RESP 20; O2SAT 98
[2020-04-11 19:05] LABS: Basophils Absolute Auto 0.08 K/mm3 (0.00-0.10); Basophils Percent Auto 1.4 % (0.0-1.0); Eosinophils Absolute Auto 0.23 K/mm3 (0.02-0.50); Hematocrit 42.9 % (35.0-49.0); Hemoglobin 14.5 g/dL (12.0-15.0); Immature Granulocyte Absolute 0.01 K/mm3 (0.00-0.00); Immature Granulocyte Percent A 0.2 % (0.0-0.0); Lymphocytes Absolute Auto 2.32 K/mm3 (1.10-4.50); Lymphocytes Percent Auto 40.3 % (18.0-42.0); Mean Corpuscular HGB Conc 33.8 g/dL (32.0-36.0); Mean Corpuscular Hemoglobin 32.5 pg (27.0-31.0); Mean Corpuscular Volume 96.2 fL (78.0-102.0); Mean Platelet Volume 12.5 fl (9.2-11.8); Monocytes Absolute Auto 0.31 K/mm3 (0.10-0.90); Monocytes Percent Auto 5.4 % (2.0-11.0); Neutrophils Absolute Auto 2.8 K/mm3 (1.7-7.2); Neutrophils Percent Auto 48.7 % (50.0-70.0); Platelet Count Result 120 K/mm3 (150-420); Red Blood Count 4.46 M/mm3 (4.20-5.40); Red Cell Distribution Width 12.3 % (11.6-14.4); White Blood Count 5.8 K/mm3 (4.8-10.8)
[2020-04-11 19:21] LABS: Alanine Aminotransferase 50 U/L (14-59); Albumin Level 3.6 g/dL (3.4-5.0); Alkaline Phosphatase 88 U/L (46-116); Anion Gap 8 mmol/L (8-16); Aspartate Amino Transferase 27 U/L (15-37); Bilirubin,Total 0.3 mg/dL (0.00-1.00); Blood Urea Nitrogen 18 mg/dL (7-18); Calcium 8.5 mg/dL (8.5-10.1); Carbon Dioxide 28 mmol/L (21-32); Chloride 105 mmol/L (98-108); Estimated CRCL calculation 73 ml/min; Estimated Glomerular Filt Rate > 60; Glucose 99 mg/dL (70-99); Osmolality Calculated 293 mOsm/kg (285-295); Potassium 4.2 mmol/L (3.5-5.1); Sodium 141 mmol/L (136-145); Total Protein 6.9 g/dL (6.4-8.2)
[2020-04-11 19:28] LABS: Magnesium 1.8 mg/dL (1.8-2.4)
[2020-04-11 19:31] LABS: BNP 19.4 pg/mL (0-100)
[2020-04-11 20:00] VITALS: BP 108/62; PULSE 54; RESP 20; O2SAT 98
--- NOTE | 2020-04-11 20:40 | ED.SYNCOPE ---
HPI - Syncope General Chief Complaint: Syncope Stated Complaint: passing out Time Seen by Provider: 04/11/20 18:35 Source: patient and family Mode of arrival: ambulatory Limitations: no limitations History of Present Illness HPI narrative: Patient had an episode of presyncope that happened at about 530 pm tonight. It sounds like she had an episode that lasted about ten minutes and she was feeling weak and sat down quickly to keep from falling down. She has had no other episodes. I discussed this with the sports equipment racker business administration program chair for her doctor (Dr. Santos) He is ok with her going home and following up with the office in the morning regarding this. MD complaint: felt faint and almost passed out Witnessed: Yes - by Bystander Context: at rest Injuries sustained associated with event: none Current symptoms: none Treatments prior to arrival: none Related Data Home Medications Medication Instructions Recorded Confirmed lorazepam [Ativan] 1 mg PO BID PRN 03/10/19 03/12/20 olanzapine [Zyprexa] 5 mg PO HS 03/10/19 03/12/20 flecainide 50 mg PO Q12H 07/01/19 03/12/20 Allergies Allergy/AdvReac Type Severity Reaction Status Date / Time Penicillins Allergy Intermediate Hives Verified 10/21/19 15:34 oseltamivir Allergy Unknown Rash Verified 05/26/18 21:03 iohexol Allergy Hives Verified 10/21/19 15:35 [From contrast - CT, X-RAY] sertraline [From Zoloft] Allergy Depression Verified 04/11/20 18:53 sulfamethoxazole Allergy Hives Verified 12/28/19 12:12 [From Bactrim] trimethoprim [From Bactrim] Allergy Hives Verified 12/28/19 12:12 citalopram AdvReac Severe SUICIDAL Verified 10/15/18 07:59 Review of Systems Review of Systems: All systems reviewed & are unremarkable except as noted in HPI and below (above) Constitutional: Constitutional: Reports no additional constitutional complaints Eyes: Eyes: Reports no additional eye complaints ENT: Reports system reviewed and no additional complaints, except as documented Cardiovascular: Cardiovascular: Reports no additional cardiovascular complaints Respiratory: Respiratory: Reports no additional respiratory complaints Gastrointestinal: Gastrointestinal: Reports no additional gastrointestinal complaints Genitourinary: Genitourinary: Reports no additional female genitourinary complaints Musculoskeletal: Musculoskeletal: Reports no additional musculoskeletal complaints Integumentary/Breasts: Skin/Breast: Reports system reviewed and no additional complaints, except as docu Neurologic: Reports system reviewed and no additional complaints, except as documented Psychiatric: Psychiatric: Reports no additional psychiatric complaints Endocrine: Endocrine: Reports no additional endocrine complaints Hematologic/Lymphatic: Hematologic/Lymphatic: Reports no additional hematologic/lymphatic complaints Allergic/Immunologic: Allergic/Immunologic: Reports no additional allergic/immunologic complaints PMFSH Past Medical History Medical History Asthma Cardiac arrhythmia Exogenous obesity Surgical History Surgical History History of cardiac radiofrequency ablation History of Tushar-en-Y gastric bypass Family History Family History Father No problems noted. Mother COPD (chronic obstructive pulmonary disease) Social History Social History Smoking status: Current every day smoker Tobacco type: cigarettes Additional smoking assessment comments: smokes 15 cigarettes per day Substance use: never Gender identity (if verbalized by the patient): Female Exam Const: General: no acute distress and alert Nutritional Appearance: well nourished Orientation/consciousness: patient oriented x3 HENMT: Head: normal to inspection Ears: external ears normal, TM's no
[2020-04-11 21:59] VITALS: BP 103/55; PULSE 58; RESP 20; O2SAT 96
== END 2020-04-11 22:02 | disposition home or self-care (01) ==
PROVIDERS: Emergency Provider Emergency Medicine
DX: R55 Syncope and collapse (principal); F17.200 Nicotine dependence, unspecified, uncomplicated
CPT/HCPCS: 36415; 80053; 81003; 83735; 83880; 84484; 85025; 93005; 99283; 99284

== ENCOUNTER 2020-05-14 12:23 | Emergency (ER) | payer BC, MEDICARE, SELFPAY ==
[2020-05-14] VITALS (14 sets, daily range): BP systolic 91–114; BP diastolic 67–86; PULSE 67–83; RESP 0–20; TEMP 36.1; O2SAT 95–99
--- NOTE | ~2020-05-14 | XR_ITS ---
EXAMINATION: XR chest 2V EXAM DATE: 05/14/2020 13:10 INDICATION: Presyncope, lightheadedness. History of heart ablation. TECHNIQUE: Frontal and lateral projections of the chest obtained and reviewed. Comparison is made to prior examination from 10/21/2019. FINDINGS: The lungs are clear. There are no pleural effusions. The cardiomediastinal silhouette is within normal limits. There is no pneumothorax suspected. Mild to moderate thoracic dextroscoliosis . IMPRESSION: No acute cardiopulmonary findings. Reviewed, dictated and finalized at location B. ATED MOTORMAN
--- NOTE | 2020-05-14 12:54 | ECG_ITS ---
Measurements Intervals [place] Rate: 69 P: 67 OR: 150 QRS: 91 QRSD: 109 T: 64 QT: 387 QTc: 417 Interpretive Statements SINUS RHYTHM RIGHT AXIS DEVIATION BASELINE WANDER- AVR, AVL, AVF BORDERLINE ECG Electronically Signed On 05-14-2020 13:15:09 VIDEO PRODUCTION COORDINATOR by Roby Nina D.O.
[2020-05-14 13:25] LABS: Basophils Absolute Auto 0.08 K/mm3 (0.00-0.10); Basophils Percent Auto 1.3 % (0.0-1.0); Eosinophils Absolute Auto 0.28 K/mm3 (0.02-0.50); Eosinophils Percent Auto 4.5 % (1.0-6.0); Hematocrit 43.2 % (35.0-49.0); Hemoglobin 14.7 g/dL (12.0-15.0); Immature Granulocyte Absolute 0.01 K/mm3 (0.00-0.00); Immature Granulocyte Percent A 0.2 % (0.0-0.0); Immature Platelet Fraction Pct 4.8 % (1.0-7.0); Lymphocytes Absolute Auto 2.41 K/mm3 (1.10-4.50); Mean Corpuscular Hemoglobin 32.4 pg (27.0-31.0); Mean Corpuscular Volume 95.2 fL (78.0-102.0); Monocytes Absolute Auto 0.41 K/mm3 (0.10-0.90); Monocytes Percent Auto 6.6 % (2.0-11.0); Neutrophils Percent Auto 48.4 % (50.0-70.0); Platelet Count Result 130 K/mm3 (150-420); Red Blood Count 4.54 M/mm3 (4.20-5.40); Red Cell Distribution Width 13.2 % (11.6-14.4); White Blood Count 6.2 K/mm3 (4.8-10.8)
[2020-05-14 13:36] LABS: D Dimer 0.38 mg/L (0.19-0.50)
[2020-05-14 13:37] LABS: BNP 25.8 pg/mL (0-100)
[2020-05-14 13:43] LABS: Alanine Aminotransferase 39 U/L (14-59); Albumin Level 3.4 g/dL (3.4-5.0); Alkaline Phosphatase 81 U/L (46-116); Anion Gap 3 mmol/L (8-16); Aspartate Amino Transferase 21 U/L (15-37); Bilirubin,Total 0.3 mg/dL (0.00-1.00); Blood Urea Nitrogen 17 mg/dL (7-18); Calcium 8.7 mg/dL (8.5-10.1); Carbon Dioxide 31 mmol/L (21-32); Chloride 108 mmol/L (98-108); Estimated CRCL calculation 65 ml/min; Estimated Glomerular Filt Rate > 60; Glucose 76 mg/dL (70-99); Osmolality Calculated 294 mOsm/kg (285-295); Potassium 4.4 mmol/L (3.5-5.1); Sodium 142 mmol/L (136-145); Total Protein 6.9 g/dL (6.4-8.2); Troponin I < 4.0 ng/L (0.00-60.4)
[2020-05-14 13:45] LABS: Add Urine Microscopic? NO; Appearance Urine Clear (Clear); Bilirubin Urine Negative (Negative); Blood Urine Negative (Negative); Color Urine Yellow (Yellow); Glucose Urine UA Negative (Negative); Ketones Urine Negative (Negative); Leukocyte Esterase Ur Negative (Negative); Nitrate Urine Negative (Negative); Protein Urine Negative (Negative); Urobilinogen Urine 0.2 mg/dL (0.2-1.0); pH Urine 6.5 (5.0-8.0)
--- NOTE | 2020-05-14 14:20 | ED.DIZZY ---
HPI - Dizziness General Chief Complaint: Dizziness Stated Complaint: feels like she going to pass out Source: patient Mode of arrival: ambulatory Limitations: no limitations History of Present Illness HPI Narrative: Patient felt presyncopal this am. This happened this am at about 830am. She says hear heart was racing and she felt faint. This lasted briefly and she comes in because of her concerns. MD elicited complaint: lightheadedness and near syncope Pertinent past history: other (premature atrial beats) Timing: sudden onset Severity: moderate Description: lightheadedness and near-syncope Context: anxiety Exacerbating factors: nothing Relieving factors: remaining still Associated symptoms: denies other symptoms Related Data Home Medications Medication Instructions Recorded Confirmed lorazepam [Ativan] 1 mg PO BID PRN 03/10/19 05/14/20 olanzapine [Zyprexa] 5 mg PO HS 03/10/19 05/14/20 flecainide 50 mg PO DAILY 07/01/19 05/14/20 Allergies Allergy/AdvReac Type Severity Reaction Status Date / Time Penicillins Allergy Intermediate Hives Verified 10/21/19 15:34 oseltamivir Allergy Unknown Rash Verified 05/26/18 21:03 iohexol Allergy Hives Verified 10/21/19 15:35 [From contrast - CT, X-RAY] sertraline [From Zoloft] Allergy Depression Verified 04/11/20 18:53 sulfamethoxazole Allergy Hives Verified 12/28/19 12:12 [From Bactrim] trimethoprim [From Bactrim] Allergy Hives Verified 12/28/19 12:12 citalopram AdvReac Severe SUICIDAL Verified 10/15/18 07:59 Review of Systems Constitutional: Constitutional: Reports no additional constitutional complaints Eyes: Eyes: Reports no additional eye complaints ENT: Reports system reviewed and no additional complaints, except as documented Cardiovascular: Cardiovascular: Reports no additional cardiovascular complaints Respiratory: Respiratory: Reports no additional respiratory complaints Gastrointestinal: Gastrointestinal: Reports no additional gastrointestinal complaints Genitourinary: Genitourinary: Reports no additional female genitourinary complaints Musculoskeletal: Musculoskeletal: Reports no additional musculoskeletal complaints Integumentary/Breasts: Skin/Breast: Reports system reviewed and no additional complaints, except as docu Neurologic: Reports system reviewed and no additional complaints, except as documented Psychiatric: Psychiatric: Reports no additional psychiatric complaints Endocrine: Endocrine: Reports no additional endocrine complaints Hematologic/Lymphatic: Hematologic/Lymphatic: Reports no additional hematologic/lymphatic complaints Allergic/Immunologic: Allergic/Immunologic: Reports no additional allergic/immunologic complaints [facility] Past Medical History Medical History (Updated 05/14/20 @ 14:40 by Dwight Sosa MD) Asthma Cardiac arrhythmia Exogenous obesity Surgical History Surgical History History of cardiac radiofrequency ablation History of Tushar-en-Y gastric bypass Family History Family History Father No problems noted. Mother COPD (chronic obstructive pulmonary disease) Social History Social History Smoking status: Current every day smoker Tobacco type: cigarettes Additional smoking assessment comments: smokes 15 cigarettes per day Substance use: never Gender identity (if verbalized by the patient): Female Exam Narrative: Exam Narrative: Patient presents after feeling presyncopal early this am. This lasted briefly and then resolved. Const: General: no acute distress and alert Orientation/consciousness: patient oriented x3 HENMT: Head: normal to inspection Ears: TM's normal bilaterally and external ear abnormal Mouth: Yes Normal oral and palatal mucosa present and Yes moist mucous membranes Throat: posterior oropharynx normal Eyes: Conjunct
== END 2020-05-14 14:58 | disposition home or self-care (01) ==
PROVIDERS: Emergency Provider Emergency Medicine
DX: R55 Syncope and collapse (principal); F17.200 Nicotine dependence, unspecified, uncomplicated
CPT/HCPCS: 36415; 71046; 80053; 81003; 83735; 83880; 84484; 85025; 85055; 85380; 93005; 99283; 99284

== ENCOUNTER 2020-05-24 07:58 | Outpatient (CLI) | payer BC, MEDICARE, SELFPAY ==
--- NOTE | 2020-05-24 09:00 | EST_ITS ---
Patient Info Name: Avani Burks Age: 50 years : 1970 Gender: Female Ht: 68 in Wt: 146 lbs BSA: 1.78 m2 HR: 86 bpm BP: 93 / 76 mmHg Heart Rhythm: Sinus Rhythm Technical Quality: Good Exam Date: 05/24/2020 9:08 AM Exam Location: [facility], [place] Patient Status: Outpatient Admit Date: 05/24/2020 Staff Ordering Physician: Rosie, Kateryna Guillermo APRN Attending Provider: Rosie, Kateryna Guillermo APRN Exercise Technologist: Allegra Perez CRT Exercise Physician: Kym Ramírez CEP Exam Type: CA stress test treadmill w NM Study Info Indications ChestPain - An exercise stress test was performed. History/Risk Factors Diabetes Mellitus: Yes COPD: On Meds Tobacco Use: Former History/Risk Factors Diabetes. COPD. Former smoker. Summary 1. 1. Negative Jakub exercise stress test for ischemic ST changes by ECG criteria. 2. 2. Good functional capacity, achieving 10 METs of workload. 3. 3. Appropriate HR response to exercise. 4. 4. Appropriate HR recovery at 1 minute post exercise. 5. 5. Nuclear scan to follow and will be reported separately. Please correlate with it. Protocol: Jakub Stress ECG Details Stage: REST Duration (min): 1 min : 6 sec Speed (mph): 0.0 Grade (%): 0 HR (bpm): 84 SBP (mmHg): 93 DBP (mmHg): 76 METS: --- Stage: REST Duration (min): 3 min : 24 sec Speed (mph): 0.0 Grade (%): 0 HR (bpm): 93 SBP (mmHg): 93 DBP (mmHg): 76 METS: --- Stage: STAGE 1 Duration (min): 1 min : 0 sec Speed (mph): 1.7 Grade (%): 10 HR (bpm): 98 SBP (mmHg): 93 DBP (mmHg): 76 METS: --- Stage: STAGE 1 Duration (min): 2 min : 0 sec Speed (mph): 1.7 Grade (%): 10 HR (bpm): 108 SBP (mmHg): 93 DBP (mmHg): 76 METS: --- Stage: STAGE 1 Duration (min): 3 min : 0 sec Speed (mph): 1.7 Grade (%): 10 HR (bpm): 113 SBP (mmHg): 132 DBP (mmHg): 70 METS: --- Stage: STAGE 2 Duration (min): 1 min : 0 sec Speed (mph): 2.5 Grade (%): 12 HR (bpm): 119 SBP (mmHg): 132 DBP (mmHg): 70 METS: --- Stage: STAGE 2 Duration (min): 2 min : 0 sec Speed (mph): 2.5 Grade (%): 12 HR (bpm): 127 SBP (mmHg): 132 DBP (mmHg): 70 METS: --- Stage: STAGE 2 Duration (min): 3 min : 0 sec Speed (mph): 2.5 Grade (%): 12 HR (bpm): 135 SBP (mmHg): 155 DBP (mmHg): 85 METS: --- Stage: STAGE 3 Duration (min): 1 min : 0 sec Speed (mph): 3.4 Grade (%): 14 HR (bpm): 145 SBP (mmHg): 155 DBP (mmHg): 85 METS: --- Stage: STAGE 3 Duration (min): 2 min : 0 sec Speed (mph): 3.4 Grade (%): 14 HR (bpm): 153 SBP (mmHg): 155 DBP (mmHg): 85 METS: --- Stage: STAGE 3 Duration (min): 2 min : 30 sec Speed (mph): 3.4 Grade (%): 14 HR (bpm): 155 SBP (mmHg): 155 DBP (mmHg): 85 METS: --- St
== END 2020-05-24 07:59 | disposition home or self-care (01) ==
LOC: CHSIMG 08:01
PROVIDERS: PCP Specialist; Visit Provider Internal Medicine Cardiovascular Disease
DX: R07.9 Chest pain, unspecified (principal)
CPT/HCPCS: 78452; 93017; A9502

== ENCOUNTER 2020-07-27 15:20 | Emergency (ER) | payer BC, MEDICARE, SELFPAY ==
--- NOTE | ~2020-07-27 | XR_ITS ---
EXAMINATION: XR hip LT 2V w AP pelvis DATE: 07/27/2020 15:50 INDICATION: Left hip pain. Injury. TECHNIQUE: An anteroposterior view of the pelvis and 2 views of left hip were obtained. COMPARISON: CT abdomen and pelvis 10/17/2018 FINDINGS: Bone alignment is normal. No fracture. There is mild osteoarthritis of the hips. There is m ild lumbar spondylosis. IMPRESSION: 1. Mild osteoarthritis of the hips. Reviewed, dictated and finalized at location A.
[2020-07-27 15:30] VITALS: BP 116/72; PULSE 84; RESP 18; TEMP 36.8; O2SAT 97
--- NOTE | 2020-07-27 16:22 | ED.LOWEXIN ---
HPI - Extremity Injury (Lower) General Chief Complaint: Extremity Injury, Lower Stated Complaint: hip pain Source: patient Mode of arrival: ambulatory Limitations: no limitations History of Present Illness HPI Narrative: Pt had sex with her this weekend, and ever since has been having a lot of hip pain. She has not had fever or been sick in any other way, but movement laterally or medially of hip causes pain. Onset (ago): day(s) Injury: Left: hip Type of Injury: unknown Place: home Severity: severe Relieving factors: rest Exacerbating factors: weight bearing and movement Associated symptoms: able to partially bear weight (just very painful) Other symptoms: none Related Data Home Medications Medication Instructions Recorded Confirmed lorazepam [Ativan] 1 mg PO BID PRN 03/10/19 07/27/20 olanzapine [Zyprexa] 5 mg PO HS 03/10/19 07/27/20 flecainide 50 mg PO DAILY 07/01/19 07/27/20 omeprazole 20 mg PO BID 07/27/20 07/27/20 Allergies Allergy/AdvReac Type Severity Reaction Status Date / Time Penicillins Allergy Intermediate Hives Verified 10/21/19 15:34 oseltamivir Allergy Unknown Rash Verified 05/26/18 21:03 iohexol Allergy Hives Verified 10/21/19 15:35 [From contrast - CT, X-RAY] sertraline [From Zoloft] Allergy Depression Verified 04/11/20 18:53 sulfamethoxazole Allergy Hives Verified 12/28/19 12:12 [From Bactrim] trimethoprim [From Bactrim] Allergy Hives Verified 12/28/19 12:12 citalopram AdvReac Severe SUICIDAL Verified 10/15/18 07:59 Review of Systems Review of Systems: All systems reviewed & are unremarkable except as noted in HPI and below PMFSH Past Medical History Medical History (Updated 07/27/20 @ 16:58 by Mandi Kaufman MD) Asthma Cardiac arrhythmia Exogenous obesity Surgical History Surgical History History of cardiac radiofrequency ablation History of Tushar-en-Y gastric bypass Family History Family History Father No problems noted. Mother COPD (chronic obstructive pulmonary disease) Social History Social History Smoking status: Current every day smoker Tobacco type: cigarettes Additional smoking assessment comments: smokes 15 cigarettes per day Substance use: never Gender identity (if verbalized by the patient): Female Exam Const: General: no acute distress and alert Nutritional Appearance: thin Orientation/consciousness: patient oriented x3 HENMT: Head: normal to inspection Eyes: Conjunctivae: conjunctivae normal Pupils: Equal, round and reactive pupils present Neck: Neck: normal visual inspection Chest: Chest palpation & inspection: normal inspection of the chest Resp: Effort & Inspection: normal respiratory effort Cardio: Rate: regular rate Rhythm: regular rhythm GI: GI Palp: Yes Soft to palpation : General: Yes no CVA tenderness Urinary Catheter: Urinary Catheter: patent and draining Skin: General skin exam: normal color Rashes: no rashes Neuro: General: patient oriented x3 and moves all extremities Extrem: Other: pain in inversion and eversion of hip. able to move hip up and down without pain, Psych: Mental Status: mental status grossly normal Thought content: Yes Normal thought content present Critical Care Time Critical Care Time Critical Care Time: No Discharge Plan Discharge Clinical Impression: Hip abductor tendinitis Qualifiers: Laterality: left Qualified Code(s): M76.892 - Other specified enthesopathies of left lower limb, excluding foot Patient Disposition: Home, Self-Care Condition: Stable Instructions: Antibiotic Form, Hip Sprain (ED) Prescriptions: New cyclobenzaprine 10 mg tablet 10 mg PO TID Qty: 10 RF: 0 No Action flecainide 50 mg Tablet 50 mg PO DAILY RF: 0 omeprazole 20 mg capsule,delay
[2020-07-27 17:05] VITALS: RESP 17
== END 2020-07-27 17:05 | disposition home or self-care (01) ==
PROVIDERS: Emergency Provider Emergency Medicine
DX: M76.892 Other specified enthesopathies of left lower limb, excluding foot (principal)
CPT/HCPCS: 73502; 99283

== ENCOUNTER 2020-12-07 10:56 | Outpatient (CLI) | payer BC, MEDICARE, SELFPAY ==
--- NOTE | ~2020-12-07 | MM_ITS ---
EXAMINATION: MM screening [facility] BI w jordan HISTORY: Screening TECHNIQUE: Craniocaudal and mediolateral oblique 3-D tomosynthesis images were obtained and synthetic 2-D images were generated. CAD analysis was submitted and interpreted. COMPARISON: Comparison to multiple prior studies sequentially, with oldest reviewed study dated 04/01. BREAST PARENCHYMAL COMPOSITION: The breasts are heterogeneously dense, which may obscure small masses . FINDINGS: There has been increased density in both breasts since prior examinations, consistent with significant weight loss. There is focal asymmetry in the upper outer quadrant of the right breast, no t definitely seen on prior examination. No mammographic evidence for malignancy in the left breast. IMPRESSION: 1. Right breast asymmetry. 2. Additional mammographic views and possible breast ultrasound are recommended. BI-RADS Category 0: Incomplete: Needs additional imaging evaluation. Reviewed, dictated and finalized at location A. IMPRESSION: 1. Right breast asymmetry. 2. Additional mammographic views and possible breast ultrasound are recommended . BI-RADS Category 0: Incomplete: Needs additional imaging evaluation.
== END 2020-12-07 10:57 | disposition home or self-care (01) ==
LOC: CHSIMG 10:59
PROVIDERS: Visit Provider Nurse Practitioner Obstetrics & Gynecology
DX: Z12.31 Encounter for screening mammogram for malignant neoplasm of breast (principal)
CPT/HCPCS: 77063; 77067

== ENCOUNTER 2020-12-10 09:48 | Outpatient (CLI) | payer BC, MEDICARE, SELFPAY ==
--- NOTE | ~2020-12-10 | MMUS_ITS ---
EXAMINATION: MM diagnostic [facility] RT w jordan, US breast RT limited HISTORY: Follow-up right breast and asymmetry TECHNIQUE: Additional 3-D tomosynthesis images of the right breast were performed and synthetic 2-D i mages were generated. CAD analysis was submitted and interpreted. High resolution Limited right breas t ultrasound was performed. COMPARISON: 12/07/2020 BREAST PARENCHYMAL COMPOSITION: The breasts are heterogenously dense, which may obscure small masses. FINDINGS: MAMMOGRAPHIC FINDINGS: There are no suspicious masses, calcifications or architectural distortion in the right breast to sug gest malignancy. ULTRASOUND: Limited right breast ultrasound: There are multiple intramammary lymph nodes in the lateral aspect of the right breast at 9, 10 and 12:00 positions, largest at 10:00 measuring 1.3 cm greatest dimension. No suspicious masses to suggest malignancy. IMPRESSION: 1. No evidence for malignancy in the right breast. 2. Routine yearly screening mammogram and regular clinical breast examination are recommended. BI-RADS Category 2: Benign finding(s). Reviewed, dictated and finalized at location A. IMPRESSION: 1. No evidence for malignancy in the right breast. 2. Routine yearly screening mammogram and regular clinical breast examination a re recommended. BI-RADS Category 2: Benign finding(s).
== END 2020-12-10 09:49 | disposition home or self-care (01) ==
LOC: CHSIMG 09:51
PROVIDERS: Visit Provider Nurse Practitioner Obstetrics & Gynecology
DX: R92.8 Other abnormal and inconclusive findings on diagnostic imaging of breast (principal)
CPT/HCPCS: 76642; 77061; 77065; G0279

== ENCOUNTER 2020-12-31 10:55 | Outpatient (CLI) | payer BC, MEDICARE, SELFPAY ==
--- NOTE | ~2020-12-31 | XR_ITS ---
EXAMINATION: XR hip RT min 2V DATE: 12/31/2020 11:22 INDICATION: Right hip pain TECHNIQUE: Two views of right hip were obtained. COMPARISON: None. FINDINGS: Bone alignment is normal. There is no fracture. Moderate osteoarthritis is noted. The soft tissues are unremarkable. IMPRESSION: 1. Mild osteoarthritis. Reviewed, dictated and finalized at location A. IMPRESSION: 1. Mild osteoarthritis.
== END 2020-12-31 10:56 | disposition home or self-care (01) ==
LOC: CHSIMG 10:59
DX: M25.551 Pain in right hip (principal)
CPT/HCPCS: 73502

== ENCOUNTER 2021-01-10 12:57 | Outpatient (RCR) | payer BC, MEDICARE, SELFPAY ==
--- NOTE | 2021-01-10 14:01 | PTOPEVAL ---
Thank you for referring Avani Burks to [facility].? The patient is scheduled to be seen for therapy? ____x/week for ___ weeks. Please review, sign, date and return this plan of care PONCHO. I agree with and certify that the following plan of care is medically necessary. Referring Physician Date Admitting Provider: Attending Provider: ARMIN MONIQUE Referring Provider: *PT Outpatient Evaluation Start: 01/10/21 12:59 Freq: Status: Active Protocol: Document 01/10/21 12:59 ACR (Rec: 01/10/21 13:59 ACR [id number]) Therapy Assessment Status Assessment Status Assessment Status Evaluation Outpatient Past Medical History Cardiovascular History Hx Cardiac Arrhythmia Yes Hx Other Cardiac Disorders Yes: VT ABLATION Respiratory History Hx Asthma Yes Hx Bronchitis Yes Gastrointestinal History Hx Cholecystectomy Yes Hx Gastric Bypass Surgery Yes Hx Gastroesophageal Reflux Disease Yes Reproductive History Hx Post Menopausal Yes Psychosocial History Hx Anxiety Yes Hx Bipolar Disorder Yes Hx Depression Yes Hx Post Traumatic Stress Disorder Yes Hx Other Psychiatric Disorders Yes: CLUSTER 1 PERSONALITY DISORDER Evaluation Information Problem Diagnosis R hip pain Onset 11/28/20 Subjective Information Patient states that her hip Query Text:As Reported By Patient/ started bothering her, but Family there is no mechanism of injury. Patient states that she has lower lumbar scoloosis and thinks that is causing the hip pain. Sitting is okay, but anytime she is on her feet her back really starts to hurt her. The pain is the worst in the morning. She states that walking, navigating steps, squatting, and getting dressed are the most difficult. Patient states that she is unable to take NSAIDS because she had gastric bypass. Patient states that sitting makes it feel better. Patient states that her goal for therapy is to be able to function without increased pain. Patient reports she has lost 200 pounds in the past
--- NOTE | 2021-03-22 13:09 | PCPTNOTE ---
03/22/21 - patient has not been to therapy in over a month. as of this date, she will be dc'd from skilled PT services and all progress towards goals will be taken from her most recent evaluation/note. LEE
== END 2021-01-21 13:38 | disposition home or self-care (01) ==
LOC: CHSPT 12:57
DX: M25.551 Pain in right hip (principal)
CPT/HCPCS: 97014; 97110; 97161; G0283

== ENCOUNTER 2021-02-11 14:19 | Emergency (ER) | payer BC, MEDICARE, SELFPAY ==
--- NOTE | ~2021-02-11 | XR_ITS ---
EXAMINATION: XR chest 2V DATE: 02/11/2021 17:20 INDICATION: Chest pain with deep breath. TECHNIQUE: Frontal and lateral views of the chest were obtained. COMPARISON: Chest 2 views 05/14/2020 FINDINGS: The chest demonstrates clear lungs without pneumonia, pleural effusion, or pneumothorax. Th e heart size is normal. IMPRESSION: 1. No acute cardiopulmonary disease. Reviewed, dictated and finalized at location A.
--- NOTE | ~2021-02-11 | CT_ITS ---
EXAMINATION: CT abdomen pelvis wo con DATE: 02/11/2021 17:21 INDICATION: Central abdominal pain, constipation and diarrhea. TECHNIQUE: Computed tomography (CT) of the abdomen and pelvis was performed without intravenous contr ast. Automated exposure control and iterative reconstruction technique were employed. The dose-length product was 448.70 mGy-cm. COMPARISON: 10/17/2018 FINDINGS: Small pneumatocele in the right lower lobe. Heart size is normal. No pericardial or pleural effusion. Postoperative change of prior gastric bypass procedure. Small focus of pneumobilia in the left hepat ic lobe likely related to prior cholecystectomy and centrally with no gallbladder evident at the gall bladder fossa. Spleen, pancreas, bilateral kidneys and right adrenal gland are normal. Unchanged 1.5 cm low-attenuation left adrenal adenoma. Normal appendix. Moderate amount of stool scattered througho ut the sigmoid predominance consistent with given history of constipation. No bowel obstruction. Blad luís and anteverted uterus are normal. Minimal likely physiologic amount of free fluid in the cul-de-s ac. No pathologically enlarged abdominal or pelvic lymphadenopathy. Mild S-shaped scoliosis of the th oracolumbar spine best appreciated on the supervisor telephone clerks topogram. Transitional thoracolumbar segment with rig ht-sided hypoplastic riblet and left-sided transverse process and transitional lumbosacral segment wh ich is sacralized on the left. There are 4 intervening nonrib-bearing lumbar segments. IMPRESSION: 1. Moderate amount of predominantly distal colonic stool consistent with given history of constipatio n. Reviewed, dictated and finalized at location A. IMPRESSION: 1. Moderate amount of predominantly distal colonic stool consistent with given history of constipation.
[2021-02-11 15:22] VITALS: BP 112/71; PULSE 79; RESP 19; TEMP 37.1; O2SAT 96
--- NOTE | 2021-02-11 15:23 | ED.ABDPAIN ---
HPI - Abdominal Pain General Chief Complaint: Abdominal Pain Stated Complaint: stomach Pain Time Seen by Provider: 02/11/21 15:23 Source: patient Mode of arrival: ambulatory Limitations: no limitations History of Present Illness HPI narrative: 50-year-old woman with a history of Tushar-en-Y bypass bariatric surgery and cholecystectomy comes in today complaining of epigastric pain that is worse when she takes in takes a deep breath and when she moves. She states she has not been hungry today but was eating in spite of that. She has had no fever, nausea, vomiting, diarrhea, cough or cold symptoms, dysuria, or shortness of breath. MD elicited complaint: abdominal pain Pertinent past history: constipation Onset (ago): day(s) (1) Pain Consistency: constant Location: epigastric Severity: moderate Quality: sharp Radiation: none Migration to: no migration Exacerbating factors: movement and other ( taking a deep breath) Relieving factors: other ( sitting position) Associated symptoms: nausea Related Data Home Medications Medication Instructions Recorded Confirmed lorazepam [Ativan] 1 mg PO BID PRN 03/10/19 02/11/21 olanzapine [Zyprexa] 5 mg PO HS 03/10/19 02/11/21 flecainide 50 mg PO DAILY 07/01/19 02/11/21 omeprazole 20 mg PO BID 07/27/20 02/11/21 ipratropium-albuterol 3 ml INHALATION QID 02/11/21 02/11/21 Allergies Allergy/AdvReac Type Severity Reaction Status Date / Time Penicillins Allergy Intermediate Hives Verified 02/11/21 15:21 oseltamivir Allergy Unknown Rash Verified 02/11/21 15:21 iohexol Allergy Hives Verified 02/11/21 15:21 [From contrast - CT, X-RAY] sertraline [From Zoloft] Allergy Depression Verified 02/11/21 15:21 sulfamethoxazole Allergy Hives Verified 02/11/21 15:21 [From Bactrim] trimethoprim [From Bactrim] Allergy Hives Verified 02/11/21 15:21 citalopram AdvReac Severe SUICIDAL Verified 02/11/21 15:21 Review of Systems Review of Systems: All systems reviewed & are unremarkable except as noted in HPI and below Constitutional: Constitutional: Denies chills and Denies fever(s) Cardiovascular: Cardiovascular: Denies chest pain and Denies radiating jaw, neck or arm pain Respiratory: Respiratory: Denies cough, Denies dyspnea and Denies wheezing Gastrointestinal: Gastrointestinal: Reports abdominal pain, Denies diarrhea, Reports nausea and Denies vomiting Genitourinary: Genitourinary: Denies hematuria, Denies nocturia, Denies dysuria and Reports flank pain Musculoskeletal: Musculoskeletal: Denies back pain, Denies arthralgias and Denies joint swelling Integumentary/Breasts: Skin/Breast: Denies pruritus, Denies erythema and Denies rash Neurologic: Denies vertigo, Denies dizziness and Denies syncope Endocrine: Endocrine: Denies excessive sweating and Denies polyuria Hematologic/Lymphatic: Hematologic/Lymphatic: Denies easy bleeding and Denies easy bruising Allergic/Immunologic: Allergic/Immunologic: Denies lip swelling and Denies throat swelling PMF Past Medical History Medical History (Updated 02/11/21 @ 17:45 by Joshua Swain MD) Asthma Cardiac arrhythmia Exogenous obesity Surgical History Surgical History History of cardiac radiofrequency ablation History of Tushar-en-Y gastric bypass Family History Family History Father No problems noted. Mother COPD (chronic obstructive pulmonary disease) Social History Social History Smoking status: Current every day smoker Tobacco type: cigarettes Additional smoking assessment comments: smokes 15 cigarettes per day Alcohol use details: denies alcohol use Substance use: never Gender identity (if verbalized by the patient): Female Exam Const: General: healthy appearing, no acute distress and alert Orientation/consciousness: patient javid
--- NOTE | 2021-02-11 15:49 | PC.NURSE ---
pt stated, i would like to wait on getting an IV or taking any pain medication that could stop me from driving home right now. pt stated, can the IV stuff wait until the lab come back? I just don't like IVs unless i really have to have one. MD Swain notified.
[2021-02-11] MEDS: ONDANSETRON HCL ODT 4 MG TABLET PO (15:56)
[2021-02-11 16:01] LABS: Basophils Absolute Auto 0.07 K/mm3 (0.00-0.10); Basophils Percent Auto 0.9 % (0.0-1.0); Eosinophils Absolute Auto 0.16 K/mm3 (0.02-0.50); Eosinophils Percent Auto 2.1 % (1.0-6.0); Hematocrit 43.5 % (35.0-49.0); Hemoglobin 14.9 g/dL (12.0-15.0); Immature Granulocyte Absolute 0.02 K/mm3 (0.00-0.00); Immature Granulocyte Percent A 0.3 % (0.0-0.0); Lymphocytes Absolute Auto 2.13 K/mm3 (1.10-4.50); Lymphocytes Percent Auto 28.6 % (18.0-42.0); Mean Corpuscular HGB Conc 34.3 g/dL (32.0-36.0); Mean Corpuscular Hemoglobin 32.8 pg (27.0-31.0); Mean Corpuscular Volume 95.8 fL (78.0-102.0); Mean Platelet Volume 11.8 fl (9.2-11.8); Monocytes Absolute Auto 0.45 K/mm3 (0.10-0.90); Neutrophils Absolute Auto 4.6 K/mm3 (1.7-7.2); Neutrophils Percent Auto 62.1 % (50.0-70.0); Platelet Count Result 143 K/mm3 (150-420); Red Blood Count 4.54 M/mm3 (4.20-5.40); Red Cell Distribution Width 13.1 % (11.6-14.4); White Blood Count 7.5 K/mm3 (4.8-10.8)
[2021-02-11 16:02] LABS: Add Urine Microscopic? NO; Appearance Urine Clear (Clear); Bilirubin Urine Negative (Negative); Blood Urine Negative (Negative); Color Urine Light Yellow (Yellow); Glucose Urine UA Negative (Negative); Ketones Urine Negative (Negative); Leukocyte Esterase Ur Negative LEU/UL (Negative); Nitrate Urine Negative (Negative); Protein Urine Negative (Negative); Specific Grav Ur 1.015 (1.010-1.020); Urobilinogen Urine 0.2 mg/dL (0.2-1.0); pH Urine 5.5 (5.0-8.0)
[2021-02-11 16:18] LABS: Alanine Aminotransferase 41 U/L (14-59); Albumin Level 3.2 g/dL (3.4-5.0); Alkaline Phosphatase 116 U/L (46-116); Anion Gap 7 mmol/L (8-16); Aspartate Amino Transferase 22 U/L (15-37); Bilirubin,Total 0.4 mg/dL (0.00-1.00); Blood Urea Nitrogen 16 mg/dL (7-18); Calcium 8.5 mg/dL (8.5-10.1); Carbon Dioxide 28 mmol/L (21-32); Chloride 107 mmol/L (98-108); Estimated CRCL calculation 78 ml/min; Estimated Glomerular Filt Rate > 60; Glucose 87 mg/dL (70-99); Lipase 103 U/L (73-393); Osmolality Calculated 294 mOsm/kg (285-295); Potassium 4.1 mmol/L (3.5-5.1); Sodium 142 mmol/L (136-145); Total Protein 6.5 g/dL (6.4-8.2)
[2021-02-11 16:28] LABS: Lactic Acid Reflex 0.5 mmol/L (0.4-2.0)
--- NOTE | 2021-02-11 16:35 | ECG_ITS ---
Measurements Intervals [place] Rate: 57 P: 51 [place]: 145 QRS: 66 QRSD: 105 T: 54 QT: 420 QTc: 409 Interpretive Statements SINUS BRADYCARDIA INCOMPLETE RIGHT BUNDLE BRANCH BLOCK BORDERLINE ECG Electronically Signed On 02-14-2021 7:40:22 CDT by Roby Nina D.O.
[2021-02-11 16:55] LABS: Pregnancy On Board Control Positive; Urine Pregnancy Test Negative
[2021-02-11 17:04] LABS: Troponin I < 4.0 ng/L (0.00-60.4)
[2021-02-11 18:21] VITALS: BP 110/67; PULSE 58; RESP 20; O2SAT 98
== END 2021-02-11 18:24 | disposition home or self-care (01) ==
PROVIDERS: Emergency Provider Emergency Medicine
DX: R10.13 Epigastric pain (principal)
CPT/HCPCS: 36415; 71046; 74176; 80053; 81003; 81025; 83605; 83690; 84484; 85025; 93005; 99283; 99284; A9270

== ENCOUNTER 2021-02-27 18:21 | Emergency (ER) | payer BC, MEDICARE, SELFPAY ==
--- NOTE | ~2021-02-27 | CT_ITS ---
EXAMINATION: CT chest abdomen pelvis wo con DATE: 02/27/2021 20:03 CDT INDICATION: Left lower chest and upper abdominal pain TECHNIQUE: Computed tomography (CT) of the chest, abdomen, and pelvis was performed without intraveno us contrast. The dose-length product was 499.63 mGy-cm. Automated exposure control and iterative jr nstruction technique were employed. COMPARISON: CT dated 02/11/2021 FINDINGS: CHEST CT: No significant thoracic lymphadenopathy. No pleural or pericardial effusion. 3 mm fissural nodule on the right, coronal image 80, likely benign. Additional 2-3 mm nodules are present bilaterally. No pne umothorax. A few small pneumatoceles are noted in the right lung. No endobronchial lesions. No focal airspace consolidation. ABDOMEN/PELVIS CT: There are surgical changes of gastric bypass surgery. Moderate colonic fecal loading. No free air or free fluid. The liver, spleen, pancreas, adrenal glands and kidneys are unremarkable for noncontrast CT. Gallbladder is present. No abnormal pelvic masses or fluid collections. Retroverted uterus. There are surgical anastomotic lines in the bowel of the left mid abdomen. No evidence for bowel obstructi on. IMPRESSION: 1. No acute abnormality of the chest, abdomen or pelvis. Reviewed, dictated and finalized at location A.
[2021-02-27 19:07] VITALS: BP 114/74; PULSE 74; RESP 20; TEMP 36.8; O2SAT 99
[2021-02-27 19:43] LABS: Basophils Absolute Auto 0.06 K/mm3 (0.00-0.10); Basophils Percent Auto 1.1 % (0.0-1.0); Eosinophils Absolute Auto 0.08 K/mm3 (0.02-0.50); Eosinophils Percent Auto 1.4 % (1.0-6.0); Hematocrit 44.1 % (35.0-49.0); Hemoglobin 15.2 g/dL (12.0-15.0); Immature Granulocyte Absolute 0.01 K/mm3 (0.00-0.00); Immature Granulocyte Percent A 0.2 % (0.0-0.0); Immature Platelet Fraction Pct 5.5 % (1.0-7.0); Lymphocytes Absolute Auto 1.82 K/mm3 (1.10-4.50); Lymphocytes Percent Auto 32.2 % (18.0-42.0); Mean Corpuscular HGB Conc 34.5 g/dL (32.0-36.0); Mean Corpuscular Volume 95.9 fL (78.0-102.0); Mean Platelet Volume 11.5 fl (9.2-11.8); Monocytes Absolute Auto 0.42 K/mm3 (0.10-0.90); Monocytes Percent Auto 7.4 % (2.0-11.0); Neutrophils Absolute Auto 3.3 K/mm3 (1.7-7.2); Neutrophils Percent Auto 57.7 % (50.0-70.0); Platelet Count Result 114 K/mm3 (150-420); Red Cell Distribution Width 13.1 % (11.6-14.4); White Blood Count 5.7 K/mm3 (4.8-10.8)
[2021-02-27] MEDS: KETOROLAC (*BKC) 60 MG/2 ML VIAL IM (19:46)
--- NOTE | 2021-02-27 19:48 | ED.ABDPAIN ---
HPI - Abdominal Pain General Chief Complaint: Abdominal Pain Stated Complaint: abd pain Time Seen by Provider: 02/27/21 18:23 Source: patient and RN notes reviewed Mode of arrival: ambulatory Limitations: no limitations History of Present Illness MD elicited complaint: other (lower left lateral ribs painful monica on deep inspiration. no acute abdominal sxs.) Pertinent past history: none Onset (ago): hour(s) (1) Pain Consistency: constant Location: chest Severity: moderate Pain scale (0-10): 8 Quality: aching and sharp Exacerbating factors: nothing Relieving factors: nothing Treatments prior to arrival: other (none.) Related Data Patient : No Home Medications Medication Instructions Recorded Confirmed lorazepam [Ativan] 1 mg PO BID PRN 03/10/19 02/27/21 olanzapine [Zyprexa] 5 mg PO HS 03/10/19 02/27/21 flecainide 50 mg PO DAILY 07/01/19 02/27/21 omeprazole 20 mg PO BID 07/27/20 02/27/21 Allergies Allergy/AdvReac Type Severity Reaction Status Date / Time Penicillins Allergy Intermediate Hives Verified 02/11/21 15:21 oseltamivir Allergy Unknown Rash Verified 02/11/21 15:21 iohexol Allergy Hives Verified 02/11/21 15:21 [From contrast - CT, X-RAY] sertraline [From Zoloft] Allergy Depression Verified 02/11/21 15:21 sulfamethoxazole Allergy Hives Verified 02/11/21 15:21 [From Bactrim] trimethoprim [From Bactrim] Allergy Hives Verified 02/11/21 15:21 citalopram AdvReac Severe SUICIDAL Verified 02/11/21 15:21 Review of Systems Review of Systems: All systems reviewed & are unremarkable except as noted in HPI and below Respiratory: Comments: lateral left lower ribs painful. Gastrointestinal: Gastrointestinal: Reports no additional gastrointestinal complaints PMFSH Past Medical History Medical History Asthma Cardiac arrhythmia Exogenous obesity Pleurisy Surgical History Surgical History History of cardiac radiofrequency ablation History of Tushar-en-Y gastric bypass Family History Family History Father No problems noted. Mother COPD (chronic obstructive pulmonary disease) Social History Social History Smoking status: Current every day smoker Tobacco type: cigarettes Additional smoking assessment comments: smokes 15 cigarettes per day Alcohol use details: denies alcohol use Substance use: never Gender identity (if verbalized by the patient): Female Exam Const: General: no acute distress Nutritional Appearance: well nourished Orientation/consciousness: patient oriented x3 HENMT: Head: normal to inspection Ears: external ears normal and TM's normal bilaterally General nose exam: Normal external nose present and Normal nares present Face and sinus: normal facial exam Mouth: Yes lip normal and Yes moist mucous membranes Teeth and gingiva: dentition normal Eyes: Conjunctivae: conjunctivae normal Pupils: Equal, round and reactive pupils present EOM: EOMs intact bilaterally Neck: Neck: normal visual inspection and no lymphadenopathy Chest: Chest palpation & inspection: normal inspection of the chest Other: mildly Resp: Effort & Inspection: normal respiratory effort Auscultation: clear to auscultation bilaterally Cardio: Rate: regular rate Rhythm: regular rhythm GI: GI Palp: Yes Soft to palpation and No Tenderness to palpation present (GI) Percussion: Yes normal to percussion Auscultation: normal bowel sounds : General: Yes no CVA tenderness Back/Spine/Pelvis: Back: no CVA tenderness Skin: General skin exam: normal color and jaundice Rashes: no rashes Neuro: General: patient oriented x3, moves all extremities, no meningeal signs, no focal motor deficits and CN's II-XI intact bilaterally Extrem: General: normal to inspection a
--- NOTE | 2021-02-27 19:58 | ECG_ITS ---
Measurements Intervals [place] Rate: 55 P: 54 [place]: 159 QRS: 58 QRSD: 112 T: 59 QT: 431 QTc: 415 Interpretive Statements SINUS BRADYCARDIA INCOMPLETE RIGHT BUNDLE BRANCH BLOCK BORDERLINE ECG Electronically Signed On 02-28-2021 7:54:23 CDT by Roby Nina D.O.
[2021-02-27 19:59] LABS: Alanine Aminotransferase 29 U/L (14-59); Albumin Level 3.3 g/dL (3.4-5.0); Alkaline Phosphatase 115 U/L (46-116); Anion Gap 8 mmol/L (8-16); Aspartate Amino Transferase 18 U/L (15-37); Bilirubin,Total 0.3 mg/dL (0.00-1.00); Blood Urea Nitrogen 16 mg/dL (7-18); Calcium 8.1 mg/dL (8.5-10.1); Carbon Dioxide 28 mmol/L (21-32); Chloride 105 mmol/L (98-108); Estimated CRCL calculation 59 ml/min; Estimated Glomerular Filt Rate > 60; Glucose 86 mg/dL (70-99); Lipase 230 U/L (73-393); Osmolality Calculated 292 mOsm/kg (285-295); Potassium 3.8 mmol/L (3.5-5.1); Sodium 141 mmol/L (136-145); Total Protein 6.4 g/dL (6.4-8.2)
[2021-02-27 20:25] LABS: Troponin I < 4.0 ng/L (0.00-60.4)
[2021-02-27] MEDS: ACETAMINOPHEN 650 MG SUPPOSITORY RECTAL (21:03)
[2021-02-27 21:04] VITALS: BP 118/69; PULSE 55; RESP 20; TEMP 36.9; O2SAT 100
== END 2021-02-27 21:05 | disposition home or self-care (01) ==
PROVIDERS: Emergency Provider Emergency Medicine
DX: R09.1 Pleurisy (principal); R07.89 Other chest pain
CPT/HCPCS: 36415; 71250; 74176; 80053; 83690; 84484; 85025; 85055; 93005; 96372; 99283; 99284; A9270; J1885

== ENCOUNTER 2021-03-30 19:17 | Emergency (ER) | payer BC, MEDICARE, SELFPAY ==
--- NOTE | 2021-03-30 21:32 | ED.SKABFB ---
HPI - Skin/Abscess/Foreign Bdy General Chief complaint: Skin/Abscess/Foreign Body Stated complaint: abscess Time Seen by Provider: 03/30/21 21:33 Source: patient Mode of arrival: ambulatory Limitations: no limitations History of Present Illness HPI narrative: 51-year-old woman comes in today complaining of a painful lump under her left arm that has been present for several days. She saw her doctor yesterday who put her on doxycycline but did not drain the abscess. She states she has had skin infections like this before. She states she feels feverish but has had no vomiting, spreading redness, or drainage from the wound. complaint: abscess/boil Onset (ago): day(s) Location: LUE (Left axilla) Severity: moderate Quality: sharp Pain Consistency: constant Relieving factors: none Exacerbating factors: palpation Associated symptoms: fever Treatments prior to arrival: antibiotic Related Data Home Medications Medication Instructions Recorded Confirmed lorazepam [Ativan] 1 mg PO BID PRN 03/10/19 02/27/21 olanzapine [Zyprexa] 5 mg PO HS 03/10/19 02/27/21 flecainide 50 mg PO DAILY 07/01/19 02/27/21 omeprazole 20 mg PO BID 07/27/20 02/27/21 Allergies Allergy/AdvReac Type Severity Reaction Status Date / Time Penicillins Allergy Intermediate Hives Verified 02/11/21 15:21 oseltamivir Allergy Unknown Rash Verified 02/11/21 15:21 iohexol Allergy Hives Verified 02/11/21 15:21 [From contrast - CT, X-RAY] sertraline [From Zoloft] Allergy Depression Verified 02/11/21 15:21 sulfamethoxazole Allergy Hives Verified 02/11/21 15:21 [From Bactrim] trimethoprim [From Bactrim] Allergy Hives Verified 02/11/21 15:21 citalopram AdvReac Severe SUICIDAL Verified 02/11/21 15:21 Review of Systems Review of Systems: All systems reviewed & are unremarkable except as noted in HPI and below Constitutional: Constitutional: Denies chills and Denies fever(s) Cardiovascular: Cardiovascular: Denies chest pain and Denies radiating jaw, neck or arm pain Respiratory: Respiratory: Denies cough and Denies dyspnea Gastrointestinal: Gastrointestinal: Denies abdominal pain, Denies nausea and Denies vomiting Integumentary/Breasts: Skin/Breast: Reports as per HPI, Denies pruritus, Denies erythema and Denies rash Neurologic: Denies vertigo, Denies dizziness and Denies syncope Allergic/Immunologic: Allergic/Immunologic: Denies lip swelling and Denies throat swelling COUNTS INCLUDE 234 BEDS AT THE [facility] Past Medical History Medical History Asthma Cardiac arrhythmia Exogenous obesity Pleurisy Surgical History Surgical History History of cardiac radiofrequency ablation History of Tushar-en-Y gastric bypass Family History Family History Father No problems noted. Mother COPD (chronic obstructive pulmonary disease) Social History Social History Smoking status: Current every day smoker Tobacco type: cigarettes Additional smoking assessment comments: smokes 15 cigarettes per day Alcohol use details: denies alcohol use Substance use: never Gender identity (if verbalized by the patient): Female Exam Const: General: healthy appearing and alert Orientation/consciousness: patient oriented x3 Limitations: no limitations Other: Mild acute distress. Skin: General skin exam: normal color, no jaundice and no pallor Rashes: no rashes Other: 2 cm firm mobile erythematous nodule in the posterior axillary line near the axilla. There is no drainage. Neuro: General: patient oriented x3, moves all extremities, no focal motor deficits and CN's II-XI intact bilaterally Speech: normal speech Gait exam (Neuro): Normal gait present Extrem: General: normal to inspection and no clubbing, cyanosis or edema Psych: Appearance: grossly normal and we
[2021-03-30] MEDS: LIDOCAINE HCL 1% LOCAL INJ 20 ML VIAL INFILTRATE (21:45)
[2021-03-30 22:00] VITALS: BP 128/88; PULSE 78; RESP 18; TEMP 36.8; O2SAT 98
--- NOTE | 2021-03-30 22:09 | PC.NURSE ---
Pt seen by ERMD set up for I&D. Pt tolerated well. 2x2 dry dressing to site. Minimal drianage.
[2021-03-30] MEDS: traMADol HCL (*CRX) 50 MG TABLET PO (22:17)
[2021-03-30 22:27] VITALS: BP 103/73; PULSE 74; RESP 18; TEMP 36.8; O2SAT 96
--- NOTE | 2021-04-02 13:25 | PC.NURSE ---
notified pt of abnormal culture. pt states has seen fmd and started on clindamycin
== END 2021-03-30 22:36 | disposition home or self-care (01) ==
PROVIDERS: Emergency Provider Emergency Medicine
DX: L02.91 Cutaneous abscess, unspecified (principal)
CPT/HCPCS: 87070; 87205; 99283; A9270

== ENCOUNTER 2021-04-06 19:45 | Emergency (ER) | payer BC, MEDICARE, SELFPAY ==
[2021-04-06 20:06] VITALS: BP 143/96; PULSE 98; RESP 18; TEMP 36.7; O2SAT 98
--- NOTE | 2021-04-06 20:19 | ED.GENADULT ---
HPI - General Adult General Chief complaint: Unspecified Stated complaint: sweats,weakness Source: patient and family Mode of arrival: ambulatory Limitations: no limitations History of Present Illness HPI narrative: Avani is a 51F with a PMH of asthma, cardiac arrhythmia, emphysema, tobacco abuse and obesity s/p gastric surgery came into the emergency department feeling sick for a few days. She had an abscess lanced 1 week ago in her left axilla. Before that she had some fevers chills and felt ill. However, after having it lanced and she was on antibiotics she felt better for a few days. 3 days ago she started feeling ill again. She had myalgias, malaise, fatigue and headaches. She was exposed to several family members that were sick but refused to be tested for COVID. She called her physician who referred her here for futher workup. She denies cough, fevers, chills, CP and SOB today. Related Data Home Medications Medication Instructions Recorded Confirmed lorazepam [Ativan] 1 mg PO BID PRN 03/10/19 04/06/21 olanzapine [Zyprexa] 5 mg PO HS 03/10/19 04/06/21 flecainide 50 mg PO DAILY 07/01/19 04/06/21 omeprazole 20 mg PO BID 07/27/20 04/06/21 Allergies Allergy/AdvReac Type Severity Reaction Status Date / Time Penicillins Allergy Intermediate Hives Verified 02/11/21 15:21 oseltamivir Allergy Unknown Rash Verified 02/11/21 15:21 iohexol Allergy Hives Verified 02/11/21 15:21 [From contrast - CT, X-RAY] sertraline [From Zoloft] Allergy Depression Verified 02/11/21 15:21 sulfamethoxazole Allergy Hives Verified 02/11/21 15:21 [From Bactrim] trimethoprim [From Bactrim] Allergy Hives Verified 02/11/21 15:21 citalopram AdvReac Severe SUICIDAL Verified 02/11/21 15:21 Review of Systems Constitutional: Constitutional: Reports as per HPI Eyes: Eyes: Reports no additional eye complaints ENT: Reports system reviewed and no additional complaints, except as documented Cardiovascular: Cardiovascular: Reports no additional cardiovascular complaints Respiratory: Respiratory: Reports no additional respiratory complaints Gastrointestinal: Gastrointestinal: Reports no additional gastrointestinal complaints Genitourinary: Genitourinary: Reports no additional female genitourinary complaints Musculoskeletal: Musculoskeletal: Reports no additional musculoskeletal complaints Integumentary/Breasts: Skin/Breast: Reports system reviewed and no additional complaints, except as docu Neurologic: Reports system reviewed and no additional complaints, except as documented Psychiatric: Psychiatric: Reports no additional psychiatric complaints Endocrine: Endocrine: Reports no additional endocrine complaints Hematologic/Lymphatic: Hematologic/Lymphatic: Reports no additional hematologic/lymphatic complaints Allergic/Immunologic: Allergic/Immunologic: Reports no additional allergic/immunologic complaints [facility] Past Medical History Medical History Asthma Cardiac arrhythmia Exogenous obesity Pleurisy Surgical History Surgical History History of cardiac radiofrequency ablation History of Tushar-en-Y gastric bypass Family History Family History Father No problems noted. Mother COPD (chronic obstructive pulmonary disease) Social History Social History Smoking status: Current every day smoker Tobacco type: cigarettes Additional smoking assessment comments: smokes 15 cigarettes per day Alcohol use details: denies alcohol use Substance use: never Gender identity (if verbalized by the patient): Female Exam Const: General: cooperative, healthy appearing, comfortable and no acute distress HENMT: Head: normal to inspection Other: normocephalic, atraumatic, normal TM bilaterally, erythematous
[2021-04-06 20:29] LABS: Influenza Control Valid (Valid)
[2021-04-06 20:35] LABS: SARS-CoV-2 Ag Negative (Negative)
[2021-04-06 21:11] LABS: Add Urine Microscopic? NO; Appearance Urine Clear (Clear); Bilirubin Urine Negative (Negative); Blood Urine Negative (Negative); Color Urine Light Yellow (Yellow); Glucose Urine UA Negative (Negative); Ketones Urine Negative (Negative); Leukocyte Esterase Ur Negative (Negative); Nitrate Urine Negative (Negative); Protein Urine Negative (Negative); Urobilinogen Urine 0.2 mg/dL (0.2-1.0); pH Urine 6.5 (5.0-8.0)
[2021-04-06 21:12] LABS: Basophils Absolute Auto 0.06 K/mm3 (0.00-0.10); Basophils Percent Auto 1.1 % (0.0-1.0); Eosinophils Absolute Auto 0.13 K/mm3 (0.02-0.50); Eosinophils Percent Auto 2.4 % (1.0-6.0); Hematocrit 42.7 % (35.0-49.0); Hemoglobin 14.5 g/dL (12.0-15.0); Immature Granulocyte Absolute 0.01 K/mm3 (0.00-0.00); Immature Granulocyte Percent A 0.2 % (0.0-0.0); Immature Platelet Fraction Pct 3.3 % (1.0-7.0); Lymphocytes Absolute Auto 2.38 K/mm3 (1.10-4.50); Lymphocytes Percent Auto 43.3 % (18.0-42.0); Mean Corpuscular Hemoglobin 32.5 pg (27.0-31.0); Mean Corpuscular Volume 95.7 fL (78.0-102.0); Mean Platelet Volume 10.9 fl (9.2-11.8); Monocytes Absolute Auto 0.41 K/mm3 (0.10-0.90); Monocytes Percent Auto 7.5 % (2.0-11.0); Neutrophils Absolute Auto 2.5 K/mm3 (1.7-7.2); Neutrophils Percent Auto 45.5 % (50.0-70.0); Platelet Count Result 137 K/mm3 (150-420); Red Blood Count 4.46 M/mm3 (4.20-5.40); Red Cell Distribution Width 12.5 % (11.6-14.4); White Blood Count 5.5 K/mm3 (4.8-10.8)
[2021-04-06] MEDS: KETOROLAC 30 MG/ML VIAL (*BKC) IM (21:18)
[2021-04-06 21:22] VITALS: BP 105/67; PULSE 88; RESP 18; TEMP 36.7; O2SAT 98
--- NOTE | 2021-04-06 21:23 | PC.NURSE ---
Patient resting comfortably in room awaiting test results. patient requested ice pack for arm where toradol was injected due to burning sensation. patient given ice pack and readjusted.
[2021-04-06 21:26] LABS: Alanine Aminotransferase 23 U/L (14-59); Albumin Level 3.2 g/dL (3.4-5.0); Alkaline Phosphatase 101 U/L (46-116); Anion Gap 10 mmol/L (8-16); Aspartate Amino Transferase 17 U/L (15-37); Bilirubin,Total 0.3 mg/dL (0.00-1.00); Blood Urea Nitrogen 19 mg/dL (7-18); Calcium 8.4 mg/dL (8.5-10.1); Carbon Dioxide 27 mmol/L (21-32); Chloride 106 mmol/L (98-108); Estimated CRCL calculation 67 ml/min; Estimated Glomerular Filt Rate > 60; Glucose 78 mg/dL (70-99); Osmolality Calculated 297 mOsm/kg (285-295); Potassium 4.2 mmol/L (3.5-5.1); Sodium 143 mmol/L (136-145); Total Protein 6.5 g/dL (6.4-8.2)
[2021-04-06 21:29] LABS: Lactic Acid Reflex 0.6 mmol/L (0.4-2.0)
[2021-04-06 21:42] VITALS: BP 105/68; PULSE 88; RESP 16; TEMP 36.7; O2SAT 98
== END 2021-04-06 21:43 | disposition home or self-care (01) ==
PROVIDERS: Emergency Provider Family Medicine
DX: J06.9 Acute upper respiratory infection, unspecified (principal); Z20.822 Contact with and (suspected) exposure to COVID-19
CPT/HCPCS: 36415; 80053; 81003; 83605; 85025; 85055; 87426; 87804; 96372; 99283; C9803; J1885

== ENCOUNTER 2021-05-04 10:30 | Outpatient (RCR) | payer BC, MEDICARE, SELFPAY ==
--- NOTE | 2021-05-04 16:46 | PTOPEVAL ---
Thank you for referring Avani Burks to [facility].? The patient is scheduled to be seen for therapy? ____x/week for ___ weeks. Please review, sign, date and return this plan of care PONCHO. I agree with and certify that the following plan of care is medically necessary. Referring Physician Date Admitting Provider: Attending Provider: reymundo henderson Referring Provider: DELMI Outpatient Evaluation Start: 05/04/21 11:05 Freq: Status: Active Protocol: Document 05/04/21 11:06 LEE (Rec: 05/04/21 11:57 [facility] [id number]) Therapy Assessment Status Assessment Status Assessment Status Evaluation Outpatient Past Medical History Cardiovascular History Hx Cardiac Arrhythmia Yes Hx Other Cardiac Disorders Yes: VT ABLATION Respiratory History Hx Asthma Yes Hx Bronchitis Yes Gastrointestinal History Hx Cholecystectomy Yes Hx Gastric Bypass Surgery Yes Hx Gastroesophageal Reflux Disease Yes Reproductive History Hx Post Menopausal Yes Psychosocial History Hx Anxiety Yes Hx Bipolar Disorder Yes Hx Depression Yes Hx Post Traumatic Stress Disorder Yes Hx Other Psychiatric Disorders Yes: CLUSTER 1 PERSONALITY DISORDER Evaluation Information Problem Diagnosis acute thoracic back pain, acute R hip pain Onset 12/29/20 Additional Evaluation Detail oswestry = 46% functionally declined Subjective Information patient reports her R hip is Query Text:As Reported By Patient/ not too bad right now and she Family wants to focus mostly on the back pain. she reports arching back and bending forward increases her back pain. she reports she has lower lumbar scoliosis. she reports she has had no new xrays of the lumbar or thoracic spine. she reports the pain is in the middle to lower middle back now. she reports the pain has been going on for about 5-6 months. she reports the pain is progressively getting worse . she reports she has ahd a scoliosis for years and used to where a taller sole in one of her shoes. patient reports infrequent R LE radicular
--- NOTE | 2021-05-25 13:17 | PTOPEVAL ---
Thank you for referring Avani Burks to [facility].? The patient is scheduled to be seen for therapy? ____x/week for ___ weeks. Please review, sign, date and return this plan of care OPNCHO. I agree with and certify that the following plan of care is medically necessary. Referring Physician Date Admitting Provider: Attending Provider: reymundo henderson Referring Provider: DELMI Outpatient Evaluation Start: 05/04/21 11:05 Freq: Status: Active Protocol: Document 05/25/21 11:00 LEE (Rec: 05/25/21 13:17 [facility] [id number]) Therapy Assessment Status Assessment Status Assessment Status Progress Outpatient Past Medical History Cardiovascular History Hx Cardiac Arrhythmia Yes Hx Other Cardiac Disorders Yes: VT ABLATION Respiratory History Hx Asthma Yes Hx Bronchitis Yes Gastrointestinal History Hx Cholecystectomy Yes Hx Gastric Bypass Surgery Yes Hx Gastroesophageal Reflux Disease Yes Reproductive History Hx Post Menopausal Yes Psychosocial History Hx Anxiety Yes Hx Bipolar Disorder Yes Hx Depression Yes Hx Post Traumatic Stress Disorder Yes Hx Other Psychiatric Disorders Yes: CLUSTER 1 PERSONALITY DISORDER Evaluation Information Problem Diagnosis acute thoracic back pain, acute R hip pain Onset 12/29/20 Subjective Information patient reports she is better Query Text:As Reported By Patient/ this date. she reports she Family is progressively getting better with therapy and modulating pain well at home with HEP. she reports she has not tried to push herself in lifting or pushing/pulling activities. Pain Assessment Timing of Pain Assessment Timing of Pain Assessment Assessment Pain Scale Pain Scale Used Numeric (1 - 10) Self Report Pain Assessment Lower Back Reported Pain Level 2 Pain Score Pain Score 2: Self Report Interventions Used Interventions Used By Clinicians Activity or ADL's,Electrical Stimulation,Exercise,Heat Cervical and Lumbar Muscle Testing Lumbar Strength Upper Abdominal Strength 4-Good- Lower Abdominal Strength 3+Fair+ Lumbar Functional Strength Comments better recruitment of the lower abdominals, but still weakness in standing and sitting positions. patient lifts 17.5lb
== END 2021-06-20 23:59 | disposition home or self-care (01) ==
LOC: CHSPT 10:30
DX: M54.6 Pain in thoracic spine (principal); M25.551 Pain in right hip
CPT/HCPCS: 97014; 97110; 97161; G0283

== ENCOUNTER 2021-06-09 17:56 | Emergency (ER) | payer BC, MEDICARE, SELFPAY ==
--- NOTE | ~2021-06-09 | XR_ITS ---
EXAMINATION: XR chest 1V portable DATE: 06/09/2021 18:40 INDICATION: Dizziness. Shortness of breath. TECHNIQUE: A single frontal view of the chest was obtained. COMPARISON: Chest 2 views 02/11/2021, chest CT 02/28/2020 FINDINGS: The chest demonstrates clear lungs without pneumonia, pleural effusion, or pneumothorax. Th e heart size is normal. IMPRESSION: 1. No acute cardiopulmonary disease. Reviewed, dictated and finalized at location E. WAY ENGINEERING TEACHER
--- NOTE | ~2021-06-09 | CT_ITS ---
EXAMINATION: CT brain wo con DATE: 06/09/2021 19:04 INDICATION: Dizziness. Diplopia. Headache. TECHNIQUE: Computed tomography (CT) of the head was performed without intravenous contrast. The mA wa s adjusted according to patient size. Iterative reconstruction technique was employed. The dose-lengt h product was 681.00 mGy-cm. COMPARISON: Head CT 10/21/2019 FINDINGS: There is no intracranial hemorrhage, acute infarction, or abnormal intracranial mass lesion . The ventricles are normal in size. There is mild mucosal thickening in the paranasal sinuses. The o rbits are normal. The mastoid air cells are normal. IMPRESSION: 1. Normal brain. Reviewed, dictated and finalized at location E. CAL/SURGERY REGISTERED NURSE IMPRESSION: 1. Normal brain.
[2021-06-09 18:05] VITALS: BP 130/78; PULSE 82; RESP 14; TEMP 36.6; O2SAT 98
--- NOTE | 2021-06-09 18:16 | ECG_ITS ---
Measurements Intervals [place] Rate: 65 P: 50 [place]: 150 QRS: 50 QRSD: 106 T: 56 QT: 409 QTc: 428 Interpretive Statements SINUS RHYTHM NORMAL ECG Electronically Signed On 06-09-2021 20:39:32 PRESS HAND by Roby Nina D.O.
[2021-06-09] MEDS: MECLIZINE HCL 25 MG TABLET PO (18:34)
--- NOTE | 2021-06-09 18:48 | ED.DIZZY ---
HPI - Dizziness General Chief Complaint: Dizziness Stated Complaint: dizzy, lightheaded, double vision, weakness Source: patient Mode of arrival: ambulatory Limitations: no limitations History of Present Illness HPI Narrative: this is a 51-year-old female with a history of depression that presents with some dizziness and lightheadedness that started earlier this morning around 10 30 patient denies any chest pain no shortness of breath no nausea vomiting no abdominal pain no dysuria no flank pain no fever chills. MD elicited complaint: dizziness and lightheadedness Onset (ago): hour(s) Timing: gradual onset Severity: mild Description: sense of movement and room spinning History of similar symptoms: Yes Exacerbating factors: movement/ambulation Relieving factors: remaining still Associated symptoms: denies other symptoms Related Data Home Medications Medication Instructions Recorded Confirmed lorazepam [Ativan] 1 mg PO BID PRN 03/10/19 06/09/21 olanzapine [Zyprexa] 5 mg PO HS 03/10/19 06/09/21 flecainide 50 mg PO DAILY 07/01/19 06/09/21 omeprazole 20 mg PO BID 07/27/20 06/09/21 Allergies Allergy/AdvReac Type Severity Reaction Status Date / Time Penicillins Allergy Intermediate Hives Verified 06/09/21 19:11 oseltamivir Allergy Unknown Rash Verified 06/09/21 19:11 iohexol Allergy Hives Verified 06/09/21 19:11 [From contrast - CT, X-RAY] sertraline [From Zoloft] Allergy Depression Verified 06/09/21 19:11 sulfamethoxazole Allergy Hives Verified 06/09/21 19:11 [From Bactrim] trimethoprim [From Bactrim] Allergy Hives Verified 06/09/21 19:11 citalopram AdvReac Severe SUICIDAL Verified 06/09/21 19:11 Review of Systems Review of Systems: All systems reviewed & are unremarkable except as noted in HPI and below PMFSH Past Medical History Medical History Asthma Cardiac arrhythmia Exogenous obesity Pleurisy Surgical History Surgical History History of cardiac radiofrequency ablation History of Tushar-en-Y gastric bypass Family History Family History Father No problems noted. Mother COPD (chronic obstructive pulmonary disease) Social History Social History Smoking status: Current every day smoker Tobacco type: cigarettes Additional smoking assessment comments: smokes 15 cigarettes per day Alcohol use details: denies alcohol use Substance use: never Gender identity (if verbalized by the patient): Female Exam Const: General: no acute distress and alert Orientation/consciousness: patient oriented x3 HENMT: Head: normal to inspection Eyes: Conjunctivae: conjunctivae normal Pupils: Equal, round and reactive pupils present Direct Ophthalmoscopy: no photophobia Neck: Neck: normal visual inspection, no lymphadenopathy and no meningeal signs Chest: Chest palpation & inspection: normal inspection of the chest Resp: Effort & Inspection: normal respiratory effort Auscultation: clear to auscultation bilaterally Cardio: Rate: regular rate Rhythm: regular rhythm GI: Auscultation: normal bowel sounds : General: Yes no CVA tenderness Urinary Catheter: Urinary Catheter: patent and draining Back/Spine/Pelvis: Back: no CVA tenderness Skin: General skin exam: normal color Rashes: no rashes Neuro: General: patient oriented x3, moves all extremities, no meningeal signs and no focal motor deficits Extrem: General: normal to inspection and no pedal edema Psych: Appearance: grossly normal Mental Status: mental status grossly normal Affect: normal affect Course Course Emergency Course: X-ray, EKG and labs reviewed with patient patient received a dose of meclizine and IV fluids Vital Signs Vital signs: Vital Signs Temperature 36.6 C 06/09/21 18:05
[2021-06-09 18:49] LABS: Basophils Absolute Auto 0.05 K/mm3 (0.00-0.10); Basophils Percent Auto 0.8 % (0.0-1.0); Eosinophils Absolute Auto 0.21 K/mm3 (0.02-0.50); Eosinophils Percent Auto 3.5 % (1.0-6.0); Hematocrit 43.4 % (35.0-49.0); Hemoglobin 14.9 g/dL (12.0-15.0); Immature Granulocyte Absolute 0.01 K/mm3 (0.00-0.00); Immature Granulocyte Percent A 0.2 % (0.0-0.0); Immature Platelet Fraction Pct 4.7 % (1.0-7.0); Lymphocytes Absolute Auto 2.24 K/mm3 (1.10-4.50); Lymphocytes Percent Auto 37.1 % (18.0-42.0); Mean Corpuscular HGB Conc 34.3 g/dL (32.0-36.0); Mean Corpuscular Hemoglobin 32.7 pg (27.0-31.0); Mean Corpuscular Volume 95.2 fL (78.0-102.0); Mean Platelet Volume 11.3 fl (9.2-11.8); Monocytes Absolute Auto 0.32 K/mm3 (0.10-0.90); Monocytes Percent Auto 5.3 % (2.0-11.0); Neutrophils Absolute Auto 3.2 K/mm3 (1.7-7.2); Neutrophils Percent Auto 53.1 % (50.0-70.0); Platelet Count Result 122 K/mm3 (150-420); Red Blood Count 4.56 M/mm3 (4.20-5.40); Red Cell Distribution Width 12.4 % (11.6-14.4)
--- NOTE | 2021-06-09 18:57 | PC.NURSE ---
pt refusing IV and IV fluids at this time.
[2021-06-09 19:08] LABS: Lactic Acid Reflex 0.7 mmol/L (0.4-2.0)
[2021-06-09 19:16] LABS: Alanine Aminotransferase 28 U/L (14-59); Albumin Level 3.4 g/dL (3.4-5.0); Alkaline Phosphatase 93 U/L (46-116); Anion Gap 8 mmol/L (8-16); Aspartate Amino Transferase 15 U/L (15-37); Bilirubin,Total 0.2 mg/dL (0.00-1.00); Blood Urea Nitrogen 21 mg/dL (7-18); Calcium 8.7 mg/dL (8.5-10.1); Carbon Dioxide 30 mmol/L (21-32); Chloride 102 mmol/L (98-108); Estimated CRCL calculation 64 ml/min; Estimated Glomerular Filt Rate > 60; Glucose 101 mg/dL (70-99); Magnesium 2.1 mg/dL (1.8-2.4); NT Pro B Type Natriuretic Pept 74 pg/mL (0-125); Osmolality Calculated 293 mOsm/kg (285-295); Potassium 3.8 mmol/L (3.5-5.1); Sodium 140 mmol/L (136-145); Total Protein 6.8 g/dL (6.4-8.2); Troponin I 4.1 ng/L (0.00-60.4)
[2021-06-09 19:19] LABS: Partial Thromboplastin Time 24.9 SEC (23.90-30.70); Prothrombin Time 10.3 Seconds (9.50-12.10)
[2021-06-09 19:22] LABS: CRP < 0.2 mg/dL (0.0-0.9)
[2021-06-09 20:21] VITALS: BP 104/75; PULSE 70; RESP 17; TEMP 36.6; O2SAT 97
== END 2021-06-09 20:27 | disposition home or self-care (01) ==
PROVIDERS: Emergency Provider Emergency Medicine
DX: R42 Dizziness and giddiness (principal); F17.200 Nicotine dependence, unspecified, uncomplicated
CPT/HCPCS: 36415; 70450; 71045; 80053; 83605; 83735; 83880; 84484; 85025; 85055; 85610; 85730; 86140; 93005; 99284; A9270

== ENCOUNTER 2021-06-13 21:49 | Observation (INO) | payer BC, MEDICARE, SELFPAY ==
--- NOTE | ~2021-06-13 | NM_ITS ---
EXAMINATION: NM pulmonary perfusion DATE: 06/14/2021 11:38 INDICATION: Right chest pain. TECHNIQUE: 5.4 mCi Tc-99m MAA was administered intravenously for perfusion images. Scintigraphic barbara ges of the chest were obtained. COMPARISON: Chest single view 06/13/2021, chest CT 02/27/2021 FINDINGS: Perfusion images show small defects in basilar right lower lobe. There is a moderate-sized defect in superior segment right lower lobe. There are large defects in right upper lobe correlating with emphy sema. There are small defects in left lower lobe. IMPRESSION: 1. Nondiagnostic (intermediate probability for pulmonary embolism). Reviewed, dictated and finalized at location A. GER SURGERY
--- NOTE | ~2021-06-13 | XR_ITS ---
EXAMINATION: XR chest 1V portable DATE: 06/13/2021 22:26 INDICATION: Shortness of breath and right-sided chest pain TECHNIQUE: frontal view of the chest was obtained. COMPARISON: Chest radiograph dated 06/09/2021 FINDINGS: The lungs remain clear with no focal airspace opacities, pulmonary edema, pleural effusion or pneumot horax. The cardiomediastinal silhouette is normal. Thoracic dextroscoliosis. IMPRESSION: 1. No acute cardiopulmonary disease. Reviewed, dictated and finalized at location A. ING MOLDER
[2021-06-13 21:55] VITALS: BP 120/76; PULSE 84; RESP 16; TEMP 36.4; O2SAT 97
--- NOTE | 2021-06-13 22:05 | ED.CHESTPAIN ---
HPI - Chest Pain General Chief Complaint: Chest Pain Stated Complaint: CHEST PAINS Time Seen by Provider: 06/13/21 22:05 Source: patient Mode of arrival: ambulatory History of Present Illness HPI narrative: 51-year-old female with a history of smoking, anxiety/depression, unremarkable cardiac catheterization in April of 2020, negative stress test in 2020, PVC on flecainide, presented to the ER with -- right anterior chest pain since this morning. The patient went to her primary care physician and was discharged home. She continued to have ongoing chest pain for which she presented to the ER. The pain is short lived lasting 5-6 seconds. the pain is sharp and stabbing. It has no relation to exercise or activity. No lightheadedness or shortness of breath. -- Right arm numbness. MD complaint: chest pain Onset (ago): day(s) ( Started this morning) Timing of current episode: episodic Prior episodes: Yes Onset: during rest Pain location: right chest Pain radiation: right arm Pain scale (0-10): 8 Quality: sharp Relieving factors: nothing Exacerbating factors: nothing Treatment prior to arrival: none Risk Factors Coronary artery disease risk factors: smoking history and hypertension Thoracic aortic dissection risk factors: none Related Data Home Medications Medication Instructions Recorded Confirmed lorazepam [Ativan] 1 mg PO BID PRN 03/10/19 06/13/21 olanzapine [Zyprexa] 5 mg PO HS 03/10/19 06/13/21 flecainide 50 mg PO DAILY 07/01/19 06/13/21 omeprazole 20 mg PO BID 07/27/20 06/13/21 Allergies Allergy/AdvReac Type Severity Reaction Status Date / Time Penicillins Allergy Intermediate Hives Verified 06/13/21 22:05 oseltamivir Allergy Unknown Rash Verified 06/13/21 22:05 iohexol Allergy Hives Verified 06/13/21 22:05 [From contrast - CT, X-RAY] sertraline [From Zoloft] Allergy Depression Verified 06/13/21 22:05 sulfamethoxazole Allergy Hives Verified 06/13/21 22:05 [From Bactrim] trimethoprim [From Bactrim] Allergy Hives Verified 06/13/21 22:05 citalopram AdvReac Severe SUICIDAL Verified 06/13/21 22:05 Review of Systems Review of Systems: All systems reviewed & are unremarkable except as noted in HPI and below Constitutional: Constitutional: Reports as per HPI Eyes: Eyes: Reports as per HPI ENT: Reports system reviewed and no additional complaints, except as documented Cardiovascular: Cardiovascular: Reports as per HPI Respiratory: Respiratory: Reports as per HPI and Reports no additional respiratory complaints Gastrointestinal: Gastrointestinal: Reports as per HPI and Reports no additional gastrointestinal complaints Genitourinary: Genitourinary: Reports no additional female genitourinary complaints Musculoskeletal: Musculoskeletal: Reports no additional musculoskeletal complaints Integumentary/Breasts: Skin/Breast: Reports system reviewed and no additional complaints, except as docu Neurologic: Reports system reviewed and no additional complaints, except as documented Psychiatric: Psychiatric: Reports no additional psychiatric complaints Endocrine: Endocrine: Reports no additional endocrine complaints Hematologic/Lymphatic: Hematologic/Lymphatic: Reports no additional hematologic/lymphatic complaints Allergic/Immunologic: Allergic/Immunologic: Reports no additional allergic/immunologic complaints PMFSH Past Medical History Medical History Asthma Cardiac arrhythmia Exogenous obesity Pleurisy Surgical History Surgical History History of cardiac radiofrequency ablation History of Tushar-en-Y gastric bypass Family History Family History Father No problems noted. Mother COPD (chronic obstructive pulmonary disease) Social History Social History Smoking status
--- NOTE | 2021-06-13 22:12 | ECG_ITS ---
Measurements Intervals [place] Rate: 70 P: 36 [place]: 150 QRS: 41 QRSD: 109 T: 47 QT: 403 QTc: 437 Interpretive Statements SINUS RHYTHM NORMAL ECG Electronically Signed On 06-14-2021 6:27:50 DOCTOR OF OSTEOPATHY by Roby Nina D.O.
[2021-06-13 22:30] VITALS: BP 100/72; PULSE 73; RESP 16; O2SAT 96
[2021-06-13 22:32] LABS: Basophils Absolute Auto 0.07 K/mm3 (0.00-0.10); Eosinophils Absolute Auto 0.22 K/mm3 (0.02-0.50); Eosinophils Percent Auto 3.2 % (1.0-6.0); Hematocrit 42.1 % (35.0-49.0); Hemoglobin 14.2 g/dL (12.0-15.0); Immature Granulocyte Absolute 0.01 K/mm3 (0.00-0.00); Immature Granulocyte Percent A 0.1 % (0.0-0.0); Immature Platelet Fraction Pct 4.2 % (1.0-7.0); Lymphocytes Absolute Auto 2.84 K/mm3 (1.10-4.50); Lymphocytes Percent Auto 40.9 % (18.0-42.0); Mean Corpuscular HGB Conc 33.7 g/dL (32.0-36.0); Mean Corpuscular Hemoglobin 32.3 pg (27.0-31.0); Mean Corpuscular Volume 95.7 fL (78.0-102.0); Mean Platelet Volume 11.2 fl (9.2-11.8); Monocytes Absolute Auto 0.52 K/mm3 (0.10-0.90); Monocytes Percent Auto 7.5 % (2.0-11.0); Neutrophils Absolute Auto 3.3 K/mm3 (1.7-7.2); Neutrophils Percent Auto 47.3 % (50.0-70.0); Platelet Count Result 131 K/mm3 (150-420); Red Cell Distribution Width 12.5 % (11.6-14.4)
[2021-06-13 22:51] LABS: D Dimer 0.52 mg/L (0.19-0.50)
[2021-06-13 22:57] LABS: Alanine Aminotransferase 32 U/L (14-59); Albumin Level 3.2 g/dL (3.4-5.0); Alkaline Phosphatase 89 U/L (46-116); Anion Gap 9 mmol/L (8-16); Aspartate Amino Transferase 17 U/L (15-37); Bilirubin,Total 0.2 mg/dL (0.00-1.00); Blood Urea Nitrogen 19 mg/dL (7-18); Calcium 8.4 mg/dL (8.5-10.1); Carbon Dioxide 28 mmol/L (21-32); Chloride 104 mmol/L (98-108); Estimated CRCL calculation 65 ml/min; Estimated Glomerular Filt Rate > 60; Glucose 98 mg/dL (70-99); NT Pro B Type Natriuretic Pept 73 pg/mL (0-125); Osmolality Calculated 294 mOsm/kg (285-295); Potassium 3.8 mmol/L (3.5-5.1); Sodium 141 mmol/L (136-145); Thyroid Stimulating Hormone 4.88 uIU/mL (0.36-3.74); Total Protein 6.6 g/dL (6.4-8.2); Troponin I 4.9 ng/L (0.00-60.4)
[2021-06-13 23:00] VITALS: BP 99/65; PULSE 66; RESP 16; O2SAT 94
--- NOTE | 2021-06-13 23:03 | PC.NURSE ---
Per Lab, pt has refused an ABG. Risks were explained and pt still refused procedure. RN notified ERP with no new orders at this time.
--- NOTE | 2021-06-13 23:26 | PC.NURSE ---
RN called SILVERIO Mosley for possible admission.
[2021-06-13 23:30] VITALS: BP 101/70; PULSE 67; RESP 18; O2SAT 95
[2021-06-13] MEDS: ENOXAPARIN 100 MG/ML SYRINGE 80 MG SUB-Q (23:49)
[2021-06-13 23:50] LABS: SARS-CoV-2 Ag Negative (Negative)
--- NOTE | 2021-06-14 00:25 | PC.NURSE ---
RN to RN report completed.
[2021-06-14 00:26] VITALS: BP 99/69; PULSE 65; RESP 14; TEMP 36.4; O2SAT 95
[2021-06-14 00:50] VITALS: BP 93/63; PULSE 78; RESP 18; TEMP 36.6; O2SAT 95
--- NOTE | 2021-06-14 01:04 | ADMGEN ---
This patient, Avani Burks, was admitted to 2nd Floor Room 202-2. Patient oriented to hospital policies and general routines including ID bracelet, bed and alarms, visiting hours, pain management, procedures, bathroom and other care routines, personal items, smoking policy, room service/diet, and visiting hours. Information on how to activate the Rapid Response Team has been discussed. Patient are encouraged to report perceived risks to care and to ask questions if they do not understand what they are told or what they should do.
[2021-06-14 01:10] VITALS: BMI 25.7
[2021-06-14 04:00] VITALS: BP 91/67; PULSE 62; RESP 16; TEMP 36.3; O2SAT 96
[2021-06-14 07:02] LABS: Free T4 Free Thyroxine 0.93 ng/dL (0.76-1.46); Troponin I 7.2 ng/L (0.00-60.4)
[2021-06-14 08:00] VITALS: BP 94/62; PULSE 64; RESP 18; TEMP 36.4; O2SAT 95
[2021-06-14] MEDS: PANTOPRAZOLE 40 MG TABLET PO (08:52)
[2021-06-14 10:09] VITALS: PULSE 86
[2021-06-14] MEDS: FLECAINIDE ACETATE 50 MG TABLET PO (10:09)
[2021-06-14] MEDS: LORazepam INJ (*CRX) 2 MG/ML VIAL 0.5 MG IV PUSH (10:10)
[2021-06-14] MEDS: ENOXAPARIN 100 MG/ML SYRINGE 80 MG SUB-Q (11:06)
--- NOTE | 2021-06-14 11:17 | PM.SD2 ---
Same Day Admit/Disch: HPI History of Present Illness Chief complaint: CHEST PAINS Narrative: Avani Burks is a 51 year old female that presented to ED with complaints of chest pain. Patient has a past medical history of asthma, arrhythmias, obesity with gastric surgery, tobacco abuse pleurisy and anxiety. Patient presented to her primary care physician for presenting to our ED for her chest pain. According to patient her primary care physician ruled out ID, I am unclear how her ID was ruled out and it appears that she sees a [place] primary care physician Dr. Herrera. There is no doctor visits note concerning her chest pains. I am unsure where she went for treatment. Patient did note that she has a history of anxiety in chest pains that she is displaying does not feel like her anxiety chest pains. Patient notes that she has sharp stabbing pain while at rest that started approximately 2 days ago. Vital signs 97.5, 64, 18, 95% room air, 94/62, WBC 7.0, hemoglobin 14.2, hematocrit 42.1, platelets 131, D-dimer 0.52, sodium 141, potassium 3.8, BUN 19, creatinine 0.86, glucose 98, lactic acid 0.7, magnesium 2.1, AST 17, ALT 32, troponin 4.1, CRP less than 0.2, BNP 74 TSH 4.88, chest x-ray unremarkable, EKG sinus bradycardia with a heart rate of 58. Patient is allergic to CTA dye she requires a VQ scan. She was made inpatient so that a VQ scan could be completed to rule out PE she is currently on Lovenox weight-based. The patient denies SOB,, palpitation, extremity numbness, lightheadedness, dizziness, constipation, diarrhea, chills, or fever. Patient has not had any chest pains this a.m. [facility] Past Medical History Medical History Asthma Cardiac arrhythmia Exogenous obesity Pleurisy Surgical History Surgical History History of cardiac radiofrequency ablation History of Tushar-en-Y gastric bypass Family History Family History (Updated 06/14/21 @ 01:10 by Mary Grace Valenzuela RN) Father No problems noted. Mother COPD (chronic obstructive pulmonary disease) Mother Ovarian cancer Mother COPD (chronic obstructive pulmonary disease) Mother CHF (congestive heart failure) Mother A-fib Social History Social History Smoking packs per day: 1.5 Smoking cigarettes per day: 30.0 Years smoked: 25 Smoking pack-years: 37.50 Smoking status: Current every day smoker Tobacco type: cigarettes Second hand tobacco smoke exposure: No Additional smoking assessment comments: smokes 15 cigarettes per day Alcohol intake: former Alcohol use details: denies alcohol use Substance use: never Gender identity (if verbalized by the patient): Female Spiritual care concerns: No (voodoo) Same Day Admit/Disch: Med Pre-admit Medications Home Medications Medication Instructions Recorded Confirmed Type lorazepam [Ativan] 1 mg PO BID PRN 03/10/19 06/13/21 History olanzapine [Zyprexa] 5 mg PO HS 03/10/19 06/13/21 History flecainide 50 mg PO DAILY 07/01/19 06/13/21 History omeprazole 20 mg PO BID 07/27/20 06/13/21 History meclizine 25 mg PO BID PRN #14 tablet 06/09/21 06/13/21 Rx Exam Narrative: GENERAL: Anxious this is a well-nourished, well-developed patient, in no apparent distress. HEAD: normocephalic, atraumatic. EYES: PERRL. Sclera clear/white. Vision is grossly intact. EARS: External ears normal, auditory canals clear and without drainage, TMs normal without perforation. Hearing grossly intact. NOSE: External nose normal with no obvious nasal discharge, nares without redness, no rhinorrhea. THROAT: Mucous membranes moist, posterior pharynx clear. NECK: Neck supple, non-tender without lymphadenopathy, masses or thyromegaly. CARDIOVASCULAR: Regular rate and rhythm without murmurs, gallops, or rubs. RESPIRATORY: Clear to auscultation. Breath soun
[2021-06-14 12:00] VITALS: BP 102/72; PULSE 88; RESP 20; TEMP 36.6; O2SAT 95
--- NOTE | 2021-06-14 14:13 | PC.NURSE ---
1330. patient dc to home. drove her self. instruction on blood thinners given. voices understanding plus follow up explained.
--- NOTE | 2021-06-14 18:00 | ECG_ITS ---
Measurements Intervals [place] Rate: 58 P: 37 [place]: 155 QRS: 62 QRSD: 108 T: 56 QT: 436 QTc: 429 Interpretive Statements SINUS BRADYCARDIA BORDERLINE ECG Electronically Signed On 06-14-2021 6:28:37 RAT FARMER by Roby Nina D.O.
--- NOTE | 2021-06-15 10:53 | PC.NURSE ---
Pt states she received and understood her discharge instructions. Pt also states everybody was really great .
== END 2021-06-14 13:30 | disposition home or self-care (01) ==
LOC: CHSED 23:43 → CHS2ND 06-14 07:19
PROVIDERS: Admitting Provider Internal Medicine Critical Care Medicine; Emergency Provider Internal Medicine Critical Care Medicine; Visit Provider Internal Medicine Critical Care Medicine
DX: R07.9 Chest pain, unspecified (principal); R79.1 Abnormal coagulation profile; I49.9 Cardiac arrhythmia, unspecified; E66.09 Other obesity due to excess calories; J45.909 Unspecified asthma, uncomplicated; F17.210 Nicotine dependence, cigarettes, uncomplicated; F32.A Depression, unspecified; F41.9 Anxiety disorder, unspecified; Z98.84 Bariatric surgery status; Z20.822 Contact with and (suspected) exposure to COVID-19
CPT/HCPCS: 36415; 36600; 71045; 78580; 80053; 83880; 84439; 84443; 84484; 85025; 85055; 85380; 87426; 93005; 96372; 96374; 99285; A9270; A9540; C9803; G0378; J1650; J2060

== ENCOUNTER 2021-07-09 19:58 | Emergency (ER) | payer BC, MEDICARE, SELFPAY ==
[2021-07-09 20:10] VITALS: BP 145/85; PULSE 100; RESP 20; TEMP 36.7; O2SAT 96
--- NOTE | 2021-07-09 20:31 | ED.EXTPRO ---
HPI - Extremity Problem General Chief complaint: Extremity Problem,Nontraumatic Stated complaint: right hip pain Source: patient and family Mode of arrival: ambulatory Limitations: no limitations History of Present Illness HPI Narrative: this is a 51-year-old female with some chronic lower back and right hip pain that is radiating down her her leg with a positive straight leg raising test with no known injuries no calf pain or swelling there is some tenderness with movement, patient has medication at home that she has not been taking. No fever chills no saddle paresthesias. MD Complaint: extremity pain Onset (ago): month(s) Pain Consistency: intermittent Location: right and lower extremity Severity scale (1-10): 8 Quality: aching Radiation: distal Relieving factors: immobilization Exacerbating factors: range of motion Related Data Home Medications Medication Instructions Recorded Confirmed lorazepam [Ativan] 1 mg PO BID PRN 03/10/19 06/13/21 olanzapine [Zyprexa] 5 mg PO HS 03/10/19 06/13/21 flecainide 50 mg PO DAILY 07/01/19 06/13/21 omeprazole 20 mg PO BID 07/27/20 06/13/21 Allergies Allergy/AdvReac Type Severity Reaction Status Date / Time Penicillins Allergy Intermediate Hives Verified 06/13/21 22:05 oseltamivir Allergy Unknown Rash Verified 06/13/21 22:05 iohexol Allergy Hives Verified 06/13/21 22:05 [From contrast - CT, X-RAY] sertraline [From Zoloft] Allergy Depression Verified 06/13/21 22:05 sulfamethoxazole Allergy Hives Verified 06/13/21 22:05 [From Bactrim] trimethoprim [From Bactrim] Allergy Hives Verified 06/13/21 22:05 citalopram AdvReac Severe SUICIDAL Verified 06/13/21 22:05 Review of Systems Review of Systems: All systems reviewed & are unremarkable except as noted in HPI and below PMFSH Past Medical History Medical History Asthma Cardiac arrhythmia Exogenous obesity Pleurisy Surgical History Surgical History History of cardiac radiofrequency ablation History of Tushar-en-Y gastric bypass Family History Family History Father No problems noted. Mother COPD (chronic obstructive pulmonary disease) Mother Ovarian cancer Mother COPD (chronic obstructive pulmonary disease) Mother CHF (congestive heart failure) Mother A-fib Social History Social History Smoking packs per day: 1.5 Smoking cigarettes per day: 30.0 Years smoked: 25 Smoking pack-years: 37.50 Smoking status: Current every day smoker Tobacco type: cigarettes Second hand tobacco smoke exposure: No Additional smoking assessment comments: smokes 15 cigarettes per day Alcohol intake: former Alcohol use details: denies alcohol use Substance use: never Gender identity (if verbalized by the patient): Female Spiritual care concerns: No (hoahaoism) Exam Const: General: no acute distress Orientation/consciousness: patient oriented x3 HENMT: Head: normal to inspection Eyes: Conjunctivae: conjunctivae normal Pupils: Equal, round and reactive pupils present Neck: Neck: normal visual inspection Chest: Chest palpation & inspection: normal inspection of the chest Resp: Effort & Inspection: normal respiratory effort Auscultation: clear to auscultation bilaterally Cardio: Rate: regular rate Rhythm: regular rhythm GI: GI Palp: Yes Soft to palpation : General: Yes no CVA tenderness Urinary Catheter: Urinary Catheter: patent and draining Back/Spine/Pelvis: Back: no CVA tenderness Skin: General skin exam: normal color Rashes: no rashes Neuro: General: patient oriented x3, moves all extremities, no meningeal signs and no focal motor deficits Extrem: General: normal to inspection and no pedal edema Other: Positive straight leg raising test on the
[2021-07-09] MEDS: KETOROLAC (*BKC) 60 MG/2 ML VIAL IM (20:33)
== END 2021-07-09 21:14 | disposition home or self-care (01) ==
PROVIDERS: Emergency Provider Emergency Medicine
DX: M54.31 Sciatica, right side (principal); M16.11 Unilateral primary osteoarthritis, right hip
CPT/HCPCS: 96372; 99283; J1885

== ENCOUNTER 2021-08-02 10:11 | Outpatient (RCR) | payer BC, MEDICARE, SELFPAY ==
--- NOTE | 2021-08-02 11:39 | PTOPEVAL ---
Thank you for referring Avani Burks to [facility].? The patient is scheduled to be seen for therapy? ____x/week for ___ weeks. Please review, sign, date and return this plan of care PONCHO. I agree with and certify that the following plan of care is medically necessary. Referring Physician Date Admitting Provider: Attending Provider: ARMIN MONIQUE Referring Provider: DELMI Outpatient Evaluation Start: 08/02/21 10:44 Freq: Status: Active Protocol: Document 08/02/21 10:45 J (Rec: 08/02/21 11:32 LEE [id number]) Therapy Assessment Status Assessment Status Assessment Status Evaluation Outpatient Past Medical History Neurological History Hx Neurological Disorders No Significant History Cardiovascular History Hx Cardiac Arrhythmia Yes Hx Other Cardiac Disorders Yes: VT ABLATION Respiratory History Hx Asthma Yes Hx Bronchitis Yes Hx Emphysema Yes Gastrointestinal History Hx Cholecystectomy Yes Hx Gastric Bypass Surgery Yes: Jan 2019 Hx Gastroesophageal Reflux Disease Yes Genitourinary History Hx Genitourinary Disorders No Significant History Musculoskeletal History Hx Musculoskeletal Disorders No Significant History Hematological History Hx Hematological Disorders No Significant History Endocrine History Hx Endocrine Disorders No Significant History HEENT History Hx HEENT Disorders No Significant History Integumentary History Hx Skin Disorders No Significant History Reproductive History Hx Post Menopausal Yes Hx Tubal Ligation Yes Psychosocial History Hx Anxiety Yes Hx Bipolar Disorder Yes Hx Depression Yes Hx Post Traumatic Stress Disorder Yes Hx Other Psychiatric Disorders Yes: CLUSTER 1 PERSONALITY DISORDER Pain History History of Any Previous or Ongoing No Significant History Instance of Pain Anesthesia History Hx Anesthesia Reactions No Significant History Evaluation Information Problem Diagnosis acute R hip pain Onset 06/28/21 Additional Evaluation Detail LEFS = 56% functionally declined Subjective Information patient reports she is having Query Text:As Reported By Patient/ pain in the R hip. she reports Family the hip began locking up on her back in june. she was doing therapy for her back and reports she had to stop and not finish due to her mother getting sick. she reports she
== END 2021-08-26 09:37 | disposition home or self-care (01) ==
LOC: CHSPT 10:11
DX: M25.551 Pain in right hip (principal)
CPT/HCPCS: 97014; 97110; 97112; 97161; 97530; G0283

== ENCOUNTER 2021-08-16 22:29 | Emergency (ER) | payer BC, MEDICARE, SELFPAY ==
--- NOTE | ~2021-08-16 | XR_ITS ---
EXAMINATION: XR chest 2V Exam Date/Time: 08/16/2021 22:50 CDT CLINICAL HISTORY: PALPATATIONS,N, DIZZINESS,MIDSTERNAL CP, HX ASTHMA Comparison: 06/13/2021. RESULT: Lines, tubes, and devices: None. Lungs and pleura: Clear. Cardiomediastinal silhouette: Stable cardiomediastinal silhouette. Other: No acute osseous or upper abdominal finding. IMPRESSION: No acute cardiopulmonary process Reviewed, dictated and finalized at location K.
--- NOTE | 2021-08-16 22:35 | ECG_ITS ---
Measurements Intervals [place] Rate: 78 P: 66 CT: 153 QRS: 64 QRSD: 101 T: 66 QT: 390 QTc: 447 Interpretive Statements SINUS RHYTHM INCOMPLETE RIGHT BUNDLE BRANCH BLOCK [90+ ms QRS DURATION, TERMINAL R IN V1/V2, 40+ ms S IN I/aVL/V4/V5/V6] COMPARED TO ECG 06/14/2021 05:32:16 HEART RATE SLIGHTLY INCREASED AND INCOMPLETE RIGHT BUNDLE BRANCH BLOCK IS NOW MANIFEST Electronically Signed On 08-17-2021 11:46:26 CDT by Benjamín Gonzales M.D.
[2021-08-16 22:37] VITALS: BP 136/76; PULSE 80; RESP 18; TEMP 36.6; O2SAT 100
[2021-08-16 22:54] LABS: Basophils Absolute Auto 0.1 K/mm3 (0.0-0.1); Basophils Percent Auto 1.2 % (0.2-1.2); Eosinophils Absolute Auto 0.2 K/mm3 (0-0.3); Eosinophils Percent Auto 3.3 % (0-4.4); Hematocrit 44.3 % (37.0-47.0); Hemoglobin 14.9 g/dL (12.0-15.0); Immature Granulocyte Absolute 0.01 K/mm3 (0.00-0.031); Immature Granulocyte Percent A 0.1 % (0-0.5); Lymphocytes Absolute Auto 2.77 K/mm3 (0.9-3.2); Lymphocytes Percent Auto 41.2 % (18.3-44.2); Mean Corpuscular HGB Conc 33.6 g/dl (32-36); Mean Corpuscular Hemoglobin 32.9 pg (26-34); Mean Corpuscular Volume 97.8 fl (80-100); Mean Platelet Volume 11.7 fl (7.4-10.4); Monocytes Absolute Auto 0.4 K/mm3 (0.1-0.6); Monocytes Percent Auto 6.2 % (2.6-8.5); Neutrophils Absolute Auto 3.2 K/mm3 (1.3-6.7); Platelet Count Result 137 k/mm3 (150-375); Red Blood Count 4.53 M/mm3 (4.2-5.4); Red Cell Distribution Width 12.7 % (11.5-14.5); White Blood Count 6.7 K/mm3 (4.5-10.0)
[2021-08-16 23:04] LABS: Alanine Aminotransferase 21 U/L (4-35); Alkaline Phosphatase 91 U/L (38-126); Anion Gap 7 mmol/L (8-16); Aspartate Amino Transferase 29 U/L (14-36); Bilirubin,Total 0.2 mg/dL (0.2-1.3); Blood Urea Nitrogen 20 mg/dL (7-17); Calcium 8.7 mg/dL (8.4-10.2); Carbon Dioxide 27 mmol/L (22-30); Chloride 105 mmol/L (98-107); Estimated CRCL calculation 78 ml/min; Estimated Glomerular Filt Rate > 60; Glucose 105 mg/dL (65-110); Lipase 88 U/L (23-300); Potassium 4.1 mmol/L (3.4-5.0); Sodium 139 mmol/L (137-145)
[2021-08-16 23:05] LABS: Prothrombin Time 12.8 Seconds (11.1-14.7)
[2021-08-16 23:06] LABS: Partial Thromboplastin Time 24.5 SECONDS (22.3-36.8)
[2021-08-16 23:16] LABS: Troponin I < 0.012 ng/mL (0.000-0.034)
--- NOTE | 2021-08-17 01:24 | PC.NURSE ---
Pt ambulated to intake while this RN was checking in new pt, states Im leaving, this is taking too long. Pt ambulated out w/ steady gait and go into a car in the [address].
== END 2021-08-17 01:43 | disposition left against medical advice (07) ==
LOC: ANHED 08-17 01:28
PROVIDERS: Emergency Provider Emergency Medicine
DX: R00.2 Palpitations (principal)
CPT/HCPCS: 36415; 71046; 80053; 83690; 84484; 85025; 85055; 85610; 85730; 93005; 99199

== ENCOUNTER 2021-08-30 13:26 | Emergency (ER) | payer BC, MEDICARE, SELFPAY ==
--- NOTE | ~2021-08-30 | XR_ITS ---
EXAMINATION: XR chest 1V portable DATE: 08/30/2021 14:29 INDICATION: Shortness of breath. Nausea. TECHNIQUE: A single frontal view of the chest was obtained. COMPARISON: Chest 2 views 08/16/2021, chest CT 02/27/2021 FINDINGS: The chest demonstrates clear lungs without pneumonia, pleural effusion, or pneumothorax. Th e heart size is normal. IMPRESSION: 1. No acute cardiopulmonary disease. Reviewed, dictated and finalized at location B.
--- NOTE | ~2021-08-30 | CT_ITS ---
EXAMINATION: CT brain wo con DATE: 08/30/2021 14:29 INDICATION: Dizziness. TECHNIQUE: Computed tomography (CT) of the head was performed without intravenous contrast. The mA wa s adjusted according to patient size. Iterative reconstruction technique was employed. The dose-lengt h product was 605.33 mGy-cm. COMPARISON: Head CT 06/09/2021 FINDINGS: There is no intracranial hemorrhage, acute infarction, or abnormal intracranial mass lesion . The ventricles are normal in size. The orbits are normal. The paranasal sinuses are clear. The mast oid air cells are normal. IMPRESSION: 1. Normal brain. Reviewed, dictated and finalized at location B. IMPRESSION: 1. Normal brain.
--- NOTE | 2021-08-30 13:49 | ECG_ITS ---
Measurements Intervals [place] Rate: 68 P: 53 HI: 149 QRS: 79 QRSD: 105 T: 63 QT: 388 QTc: 413 Interpretive Statements SINUS RHYTHM INCOMPLETE RIGHT BUNDLE BRANCH BLOCK DELAYED PRECORDIAL R/S TRANSITION BORDERLINE R WAVE PROGRESSION, ANTERIOR LEADS BORDERLINE ECG Electronically Signed On 08-30-2021 14:43:39 CDT by Roby Nina D.O.
[2021-08-30] MEDS: ONDANSETRON INJ 4 MG/2 ML VIAL IV PUSH (13:56)
[2021-08-30] MEDS: PANTOPRAZOLE SODIUM IV 40 MG VIAL IV PUSH (13:59)
[2021-08-30] MEDS: SODIUM CHLORIDE 0.9% IV 1,000 ML 999 ML (14:01)
[2021-08-30 14:12] VITALS: BP 111/82; PULSE 105; RESP 18; TEMP 36.5; O2SAT 96
[2021-08-30 14:15] LABS: Basophils Absolute Auto 0.06 K/mm3 (0.00-0.10); Basophils Percent Auto 1.3 % (0.0-1.0); Eosinophils Absolute Auto 0.15 K/mm3 (0.02-0.50); Eosinophils Percent Auto 3.3 % (1.0-6.0); Hemoglobin 14.5 g/dL (12.0-15.0); Immature Platelet Fraction Pct 4.2 % (1.0-7.0); Mean Corpuscular HGB Conc 33.7 g/dL (32.0-36.0); Mean Corpuscular Hemoglobin 33.2 pg (27.0-31.0); Mean Corpuscular Volume 98.4 fL (78.0-102.0); Mean Platelet Volume 11.4 fl (9.2-11.8); Monocytes Absolute Auto 0.47 K/mm3 (0.10-0.90); Monocytes Percent Auto 10.4 % (2.0-11.0); Neutrophils Absolute Auto 1.9 K/mm3 (1.7-7.2); Platelet Count Result 128 K/mm3 (150-420); Red Blood Count 4.37 M/mm3 (4.20-5.40); Red Cell Distribution Width 12.6 % (11.6-14.4); White Blood Count 4.5 K/mm3 (4.8-10.8)
[2021-08-30 14:17] LABS: SPREG INTERNAL CONTROL Positive; Serum Qual hCG Negative
[2021-08-30 14:36] LABS: Alanine Aminotransferase 29 U/L (14-59); Alkaline Phosphatase 102 U/L (46-116); Anion Gap 5 mmol/L (8-16); Aspartate Amino Transferase 20 U/L (15-37); Bilirubin,Total 0.2 mg/dL (0.00-1.00); Blood Urea Nitrogen 20 mg/dL (7-18); Calcium 8.3 mg/dL (8.5-10.1); Carbon Dioxide 31 mmol/L (21-32); Chloride 107 mmol/L (98-108); Estimated CRCL calculation 75 ml/min; Estimated Glomerular Filt Rate > 60; Ethanol < 3 mg/dL (0-6); Glucose 75 mg/dL (70-99); Lipase 99 U/L (73-393); Osmolality Calculated 297 mOsm/kg (285-295); Potassium 4.2 mmol/L (3.5-5.1); Sodium 143 mmol/L (136-145); Thyroid Stimulating Hormone 1.67 uIU/mL (0.36-3.74); Total Protein 6.4 g/dL (6.4-8.2); Troponin I 4.8 ng/L (0.00-60.4)
[2021-08-30 14:42] LABS: Add Urine Microscopic? NO; Appearance Urine Clear (Clear); Bilirubin Urine Negative (Negative); Blood Urine Negative (Negative); Color Urine Light Yellow (Yellow); Glucose Urine UA Negative (Negative); Ketones Urine Negative (Negative); Leukocyte Esterase Ur Negative (Negative); Nitrate Urine Negative (Negative); Protein Urine Negative (Negative); Specific Grav Ur <= 1.005 (1.010-1.020); Urobilinogen Urine 0.2 mg/dL (0.2-1.0)
[2021-08-30 14:49] LABS: Amphetamine Screen Urine Negative (Negative); Barbiturate Screen Urine Negative (Negative); Benzodiazepines Screen Urine Negative (Negative); Cannabinoid Screen Urine Negative (Negative); Cocaine Screen Urine Negative (Negative); Methadone Screen Urine Negative (Negative); Opiate Screen Urine Negative (Negative); Phencyclidine Screen Urine Negative (Negative)
--- NOTE | 2021-08-30 15:57 | ED.GENADULT ---
HPI - General Adult General Chief complaint: Unspecified Stated complaint: LIGHT HEADED/CLAMY HANDS/SWEAT/ Time Seen by Provider: 08/30/21 13:30 Source: patient and RN notes reviewed Mode of arrival: ambulatory Limitations: no limitations History of Present Illness Onset (ago): day(s) (3) Location: head and abdomen Radiation: non-radiation Severity: mild Quality: other (pain-free) Relieving factors: none Exacerbating factors: none Associated symptoms: nausea/vomiting and weakness Related Data Home Medications Medication Instructions Recorded Confirmed lorazepam [Ativan] 1 mg PO BID PRN 03/10/19 08/30/21 olanzapine [Zyprexa] 5 mg PO HS 03/10/19 08/30/21 flecainide 50 mg PO DAILY 07/01/19 08/30/21 omeprazole 20 mg PO BID 07/27/20 08/30/21 Allergies Allergy/AdvReac Type Severity Reaction Status Date / Time Penicillins Allergy Intermediate Hives Verified 06/13/21 22:05 oseltamivir Allergy Unknown Rash Verified 06/13/21 22:05 iohexol Allergy Hives Verified 06/13/21 22:05 [From contrast - CT, X-RAY] sertraline [From Zoloft] Allergy Depression Verified 06/13/21 22:05 sulfamethoxazole Allergy Hives Verified 06/13/21 22:05 [From Bactrim] trimethoprim [From Bactrim] Allergy Hives Verified 06/13/21 22:05 citalopram AdvReac Severe SUICIDAL Verified 06/13/21 22:05 Review of Systems Review of Systems: All systems reviewed & are unremarkable except as noted in HPI and below PMFSH Past Medical History Medical History Asthma Cardiac arrhythmia Dizziness, nonspecific Exogenous obesity Pleurisy Surgical History Surgical History History of cardiac radiofrequency ablation History of Tushar-en-Y gastric bypass Family History Family History Father No problems noted. Mother COPD (chronic obstructive pulmonary disease) Mother Ovarian cancer Mother COPD (chronic obstructive pulmonary disease) Mother CHF (congestive heart failure) Mother A-fib Social History Social History Smoking packs per day: 1.5 Smoking cigarettes per day: 30.0 Years smoked: 25 Smoking pack-years: 37.50 Smoking status: Current every day smoker Tobacco type: cigarettes Second hand tobacco smoke exposure: No Additional smoking assessment comments: smokes 15 cigarettes per day Alcohol intake: former Alcohol use details: denies alcohol use Substance use: never Gender identity (if verbalized by the patient): Female Spiritual care concerns: No (faith) Exam Const: General: cooperative, no acute distress and alert Nutritional Appearance: well nourished Orientation/consciousness: patient oriented x3 Limitations: no limitations HENMT: Head: normal to inspection, normocephalic and atraumatic Ears: hearing grossly normal bilaterally, external ears normal, TM's normal bilaterally and EAC's normal General nose exam: Normal external nose present and Normal nares present Face and sinus: normal facial exam and sinuses nontender Mouth: Yes Normal oral and palatal mucosa present, Yes lip normal, Yes tongue normal, Yes oropharynx normal and Yes moist mucous membranes Throat: posterior oropharynx normal Eyes: General: appearance normal, both eyes and all related structures Visual Soliman: normal visual soliman by confrontation Periorbital: periorbital findings normal Eyelids: eyelids normal Conjunctivae: conjunctivae normal Sclera: sclerae normal Cornea: corneas normal Pupils: Equal, round and reactive pupils present, Pupils normal by confrontation and Pupil accommodation reflex normal EOM: EOMs intact bilaterally Direct Ophthalmoscopy: normal light reflex Neck: Neck: normal visual inspection, full ROM, no lymphadenopathy, no meningeal signs, trachea midline and supple Chest: Chest palpat
[2021-08-30 16:13] VITALS: BP 105/70; PULSE 68; RESP 20; TEMP 36.6; O2SAT 97
== END 2021-08-30 16:21 | disposition home or self-care (01) ==
PROVIDERS: Emergency Provider Emergency Medicine
DX: R42 Dizziness and giddiness (principal); K21.9 Gastro-esophageal reflux disease without esophagitis; F17.200 Nicotine dependence, unspecified, uncomplicated
CPT/HCPCS: 36415; 70450; 71045; 80053; 80307; 81003; 83690; 84443; 84484; 84703; 85025; 85055; 93005; 96374; 96375; 99284; C9113; J2405; J7030

== ENCOUNTER 2021-09-12 12:22 | Outpatient (CLI) | payer BC, MEDICARE, SELFPAY | END 2021-09-12 12:23 | disposition home or self-care (01) | LOC: CHSIMG 12:24 | PROVIDERS: PCP Specialist; Visit Provider Specialist | DX: I95.89 Other hypotension (principal); R42 Dizziness and giddiness | CPT/HCPCS: 93306 ==

== ENCOUNTER 2023-01-20 08:33 | Outpatient (CLI) | payer BC, MEDICARE, SELFPAY ==
--- NOTE | 2023-01-20 | ECHO_ITS ---
Patient Info Name: Avani Burks Age: 52 years : 1970 Gender: Female Ht: 68 in Wt: 190 lbs BSA: 2.05 m2 HR: 85 bpm BP: 103 / 82 mmHg Heart Rhythm: Sinus Rhythm Technical Quality: Good Exam Date: 01/20/2023 9:12 AM Exam Location: [facility] Card Pulmonary Patient Status: Outpatient Admit Date: 01/20/2023 Staff Ordering Physician: Bob Shen MD Criminal Analyst: Shanita Pyle RDCS Attending Provider: Bob Shen MD Referring Physician: Hermelinda ROCHA; Exam Type: CA echo doppler color flow Study Info Indications - pvc, palpatation.sob Complete two-dimensional, color flow and Doppler transthoracic echocardiogram is performed. History/Risk Factors Diabetes Mellitus: Yes COPD: On Meds Tobacco Use: Former Summary 1. Complete two-dimensional, color flow and Doppler transthoracic echocardiogram is performed. 2. Left ventricular chamber dimension is normal. 3. Left ventricular systolic function is normal, estimated at 60-65%. 4. There is no increased left ventricular wall thickness. 5. The left ventricular diastolic function is grade I diastolic dysfunction. 6. There is no aortic valve stenosis. 7. There is trace mitral valve regurgitation. 8. There is trace tricuspid valve regurgitation. 9. No pulmonary hypertension, estimated pulmonary arterial systolic pressure is 20 mmHg. Recommendations * Continue medical therapy for diabetes. Left Ventricle Left ventricular chamber dimension is normal. Left ventricular systolic function is normal, estimated at 60-65%. There is no increased left ventricular wall thickness. The left ventricular diastolic function is grade I diastolic dysfunction. Right Ventricle Right ventricular chamber dimension is normal. Right ventricular systolic function is normal. Left Atria Left atrial chamber dimension is normal. Right Atria Right atrial chamber dimension is normal. Aortic Valve The aortic valve is not well visualized. There is no aortic valve stenosis. There is no aortic valve regurgitation. Pulmonic Valve The pulmonic valve is not well visualized. Mitral Valve The mitral valve has normal leaflets. There is trace mitral valve regurgitation. Tricuspid Valve The tricuspid valve leaflets are normal. There is trace tricuspid valve regurgitation. No pulmonary hypertension, estimated pulmonary arterial systolic pressure is 20 mmHg. Pericardium/Pleural The pericardium appears epicardial fat pad. Inferior Vena Cava Normal inferior vena cava with >50% collapse upon inspiration consistent with Empty right atrial pressure, 5 mmHg. Aorta The aortic root size at the sinus of Valsalva is normal. Left Ventricular Outflow Tract Name Value Normal LVOT 2D LVOT Diameter 1.9 cm LVOT Doppler LVOT Peak Gradient 3 mmHg LVOT Mean Gradient 2 mmHg LVOT VTI 24 cm LVOT VTI/AV VTI Ratio 0.8 LVOT Stroke Volume 72 ml LVOT CO 3.7 l/min LVOT CI 1.8 l/min/m2 Pulmonic Valve
== END 2023-01-20 08:34 | disposition home or self-care (01) ==
LOC: ANHCARD 08:34
PROVIDERS: PCP Internal Medicine Cardiovascular Disease; Visit Provider Internal Medicine Cardiovascular Disease
DX: I49.3 Ventricular premature depolarization (principal); R00.2 Palpitations; R06.02 Shortness of breath
CPT/HCPCS: 93306